=== PATIENT | male | born 1970 | race Caucasian/White ===

== ENCOUNTER 2022-11-03 11:07 | Emergency (ER) | payer BC ==
[~2022-11-03] VITALS: Ht 182 cm; Wt 90.0 kg
[2022-11-03 11:23] LABS: BASOPHILS % (AUTO) 0 % (0-10); EOSINOPHILS % (AUTO) 0 % (0-10); HEMATOCRIT 50 % (40-54); HEMOGLOBIN 17.7 g/dL (13.3-17.7); LYMPHOCYTES # (AUTO) 1.1 10^3/uL (1.0-4.0); LYMPHOCYTES % (AUTO) 21 % (12-44); MEAN CORPUSCULAR HEMOGLOBIN 33 pg (25-34); MEAN CORPUSCULAR HGB CONC 36 g/dL (32-36); MEAN CORPUSCULAR VOLUME 93 fL (80-99); MEAN PLATELET VOLUME 10.2 fL (9.0-12.2); MONOCYTES # (AUTO) 0.7 10^3/uL (0.0-1.0); MONOCYTES % (AUTO) 12 % (0-12); NEUTROPHILS # (AUTO) 3.6 10^3/uL (1.8-7.8); NEUTROPHILS % (AUTO) 66 % (42-75); PLATELET COUNT 186 10^3/uL (130-400); WHITE BLOOD COUNT 5.4 10^3/uL (4.3-11.0)
--- NOTE | 2022-11-03 11:29 | ED Cardiac General ---
History of Present Illness General Chief Complaint: Cardiac/General Problems Stated Complaint: TACHY | LOW BLOOD PRESSURE Nursing Triage Note: PT ARRIVED PER EMS, PT WAS AT [facility] IN [place], PT IS CURRENLY IN SVT. PT WAS GIVEN ADENSINE 6MG AND 12MG IV BY EMS W NO CHANGE IN RATE. PT HAS SL IN PLACE IN L AC #20 BY [facility]. PT IS ALERT AND ORIENTED. NO C/P OR DISTRESS. Source: patient, EMS Exam Limitations: no limitations History of Present Illness Date Seen by Provider: November 03, 2022 Time Seen by Provider: 11:10 Initial Comments 52-year-old male brought in from the [facility] clinic via ambulance from [place] presents for palpitations. He was found to be in SVT with rates in the 170s and reported systolic blood pressures in the 7080 range. He states he and his both felt unwell on Thursday and he did not really feel much better through the weekend. He does typically drink about 2 pots of coffee a day. No energy or workout supplements. He denies any chest pain or shortness of breath on arrival to states he feels off, slightly lightheaded and fatigued. EMS gave him 6 and 12 of adenosine in route without any change in his underlying rhythm. He did remain hypotensive, 80-90 systolic for EMS. On arrival he is alert and oriented. He states he had this happen once before about 2 years ago All other systems reviewed and negative except documented per HPI. Voice recognition software was used to help create this chart Allergies and Home Medications Allergies Coded Allergies: No Known Drug Allergies (Unverified , 11/03/22) Patient Home Medication List Home Medication List Reviewed: Yes Review of Systems Review of Systems Constitutional: see HPI Past Rqznbls-Vwkzfx-Vflvch Hx Patient Social History Tobacco Use?: Yes Use of E-Cig and/or Vaping dev: No Substance use?: No Alcohol Use?: No Physical Exam Vital Signs Vital Signs - First Documented 11/03/22 11/03/22 11:07 11:16 Temp 35.8 Pulse 178 Resp 18 B/P (MAP) 103/92 (96) Pulse Ox 100 O2 Delivery Room Air O2 Flow Rate 8.00 Capillary Refill : Less Than 3 Seconds Height, Weight, BMI Height: '" Weight: lbs. oz. kg; 27.00 BMI Method: General Appearance: No Apparent Distress, WD/WN HEENT: Normal ENT Inspection, Pharynx Normal Neck: Full Range of Motion, Normal Inspection, Non Tender, Supple Respiratory: Chest Non Tender, Lungs Clear, Normal Breath Sounds, No Accessory Muscle Use, No Respiratory Distress Cardiovascular: No Murmur, Normal Peripheral Pulses, Tachycardia Gastrointestinal: Normal Bowel Sounds, Non Tender, Soft Extremity: Normal Capillary Refill, Normal Inspection, Non Tender, No Calf Tenderness, No Pedal Edema Neurologic/Psychiatric: Alert, Oriented x3, No Motor/Sensory Deficits Skin: Normal Color, Warm/Dry Procedures/Interventions Additional Procedures: cardioversion/defib Progress Patient was sedated with 10 mg of etomidate. Synchronized cardioversion performed at 200 J. Successful cardioversion after single attempt. Patient tolerated well without complications. Progress/Results/Core Measures Results/Orders Lab Results Laboratory Tests Test 11/03/22 11:10 11/03/22 11:48 Range/Units White Blood Count 5.4 4.3-11.0 10^3/uL Red Blood Count 5.34 4.30-5.52 10^6/uL Hemoglobin 17.7 13.3-17.7 g/dL Hematocrit 50 40-54 % Mean Corpuscular Volume 93 80-99 fL Mean Corpuscular Hemoglobin 33 25-34 pg Mean Corpuscular Hemoglobin Concent 36 32-36 g/dL Red Cell Distribution Width 12.8 10.0-14.5 % Platelet Count 186 130-400 10^3/uL Mean Platelet Volume 10.2 9.0-12.2 fL Immature Granulocyte % (Auto) 0 % Neutrophils (%) (Auto) 66 42-75 % Lymphocytes (%) (Auto) 21 12-44 % Monocytes (%) (Auto) 12 0-12 % Eosinophils (%) (Auto) 0 0-10 % Basophils (%) (Auto) 0 0-10 % Neutrophils # (Auto) 3.6 1.8-7.8 10^3/uL Lymphocytes # (Auto) 1.1 1.0-4.0 10^3/uL Monocytes # (Auto) 0.7 0.0-1.0 10^3/uL Eosinophils # (Auto) 0.0 0.0-0.3 10^3/uL Basophils # (Auto) 0.0 0.0-0.1 10^3/uL Immature Granulocyte # (Auto) 0.0 0.0-0.1 10^3/uL Sodium Level 126 L 135-145 MMOL/L Potassium Level 4.6 3.6-5.0 MMOL/L Chloride Level 94 L 98-107 MMOL/L Carbon Dioxide Level 21 21-32 MMOL/L Anion Gap 11 5-14 MMOL/L Blood Urea Nitrogen 15 7-18 MG/DL Creatinine 1.18 0.60-1.30 MG/DL Estimat Glomerular Filtration Rate 73 BUN/Creatinine Ratio 13 Glucose Level 101 70-105 MG/DL Calcium Level 8.7 8.5-10.1 MG/DL Corrected Calcium 9.0 8.5-10.1 MG/DL Magnesium Level 2.0 1.6-2.4 MG/DL Total Bilirubin 0.5 0.1-1.0 MG/DL Aspartate Amino Transf (AST/SGOT) 21 5-34 U/L Alanine Aminotransferase (ALT/SGPT) 17 0-55 U/L Alkaline Phosphatase 47 40-136 U/L Troponin I 0.129 H <0.028 NG/ML Total Protein 6.8 6.4-8.2 GM/DL Albumin 3.6 3.2-4.5 GM/DL Group A Streptococcus Screen NEGATIVE NEGATIVE My Orders Orders - SHAWN MONTANA DO Ekg Tracing (11/03/22 11:12) Comprehensive Metabolic Panel (11/03/22 11:18) Magnesium (11/03/22 11:18) Troponin I Bond (11/03/22 11:18) Cbc With Automated Diff (11/03/22 11:18) Ekg Tracing (11/03/22 11:18) Ekg Tracing (11/03/22 11:18) Rapid Strep A Screen (11/03/22 11:46) Etomidate Injection (Amidate Injection) (11/03/22 12:00) Throat Culture Strep A Confirm (11/03/22 11:48) Medications Given in ED Current Medications Medications Dose Ordered Sig/French Route Start Time Stop Time Status Last Admin Dose Admin Etomidate 10 mg ONCE ONCE IV 11/03/22 12:00 11/03/22 12:01 DC 11/03/22 11:14 10 MG Vital Signs/I&O 11/03/22 11/03/22 11/03/22 11:07 11:16 11:30 Temp 35.8 Pulse 178 80 Resp 18 B/P (MAP) 103/92 (96) Pulse Ox 100 100 O2 Delivery Room Air OxyMask O2 Flow Rate 8.00 Blood Pressure Mean: 96 Comment Initial EKG at 1115: SVT at 170 bpm. Diffuse T wave inversions. No ST elevations. Normal intervals outside of TN interval. Normal axis. No STEMI. EKG : Comment Post cardioversion EKG at 1124: 83 bpm. Sinus rhythm. Normal intervals. Normal axis. No ST or T wave abnormalities. No ectopy. Critical Care Note Critical Care Total Time (minutes) 30 Departure Communication (Admissions) The patient initially was in SVT with rate [id number], hypotensive. He was quite dizzy. He was given etomidate for slight sedation and synchronized cardi oversion performed at 200 J with success after single cardioversion. Maintaining sinus rhythm after significant period of observation. Labs obtained to rule out electrolyte abnormalities. Sodium found to be 126. I then went into discussed this with him and his tells me that he has had issues with low sodium in the recent past, within the last year or so. They pull up labs on her phone and he had a 128 sodium in December of last year. He had a subsequent 131 and has not been rechecked since that time. With that I think this is likely chronic issue and does not require hospitalization at this time. Is unclear if hyponatremia had anything to do with his SVT episode but given that this is a chronic issue I doubt the significance. He has no real symptoms related to hyponatremia at this time. Have this rechecked in 48 hours with your primary care doctor and to seek further treatment recommendations regarding chronic hyponatremia. His troponin is slightly elevated. This is expected given his SVT that he likely had been in over the weekend continuously. This is likely from demand ischemia. He is completely asymptomatic at present feeling back to his normal state of health. He will be discharged home in stable condition with close follow-up. Impression Primary Impression: Supraventricular tachycardia Additional Impression: Chronic hyponatremia Disposition: 01 HOME, SELF-CARE Condition: Stable Departure-Patient Inst. Referrals: [facility] (PCP/Family) Primary Care Physician Patient Instructions: Supraventricular Tachycardia (SVT), Hyponatremia (DC) Add. Discharge Instructions: Increase your fluids at home, rest. Decrease your caffeine intake. Have your sodium rechecked in 48 hours. Return to the emergency department immediately for any chest pain shortness of breath or if your symptoms recur. All discharge instructions reviewed with patient and/or family. Voiced understanding. SHAWN MONTANA DO November 03, 2022 11:29
[2022-11-03 11:32] LABS: ALBUMIN 3.6 GM/DL (3.2-4.5)
[2022-11-03 11:33] LABS: POTASSIUM 4.6 MMOL/L (3.6-5.0)
[2022-11-03 11:34] LABS: CALCIUM 8.7 MG/DL (8.5-10.1)
[2022-11-03 11:35] LABS: TOTAL PROTEIN 6.8 GM/DL (6.4-8.2)
[2022-11-03 11:37] LABS: BILIRUBIN,TOTAL 0.5 MG/DL (0.1-1.0)
[2022-11-03 11:39] LABS: CREATININE SERUM 1.18 MG/DL (0.60-1.30)
[2022-11-03] MEDS ORDERED: ETOMIDATE IV SOLN 20 MG/10 ML VIAL IV ONE (12:00)
[2022-11-03 13:35] VITALS: BP 104/76
== END 2022-11-03 13:36 | disposition home or self-care (01) ==
LOC: ER 11:13
DX: I47.1 Supraventricular tachycardia (principal); E87.1 Hypo-osmolality and hyponatremia
CPT/HCPCS: 36415; 80053; 83735; 84484; 85025; 87430; 93005

== ENCOUNTER 2022-11-04 10:30 | Inpatient (IN) | payer BC ==
[~2022-11-04] VITALS: Ht 180 cm; Wt 88.0 kg
[2022-11-04] MEDS: ACETAMINOPHEN 500 MG TAB (TYLENOL) PO ONE ×2 (11:15→17:52)
[2022-11-04] MEDS: ENOXAPARIN 80 MG/0.8 ML (LOVENOX) SYR SC ONE ×2 (11:28→17:36)
[2022-11-04] MEDS: ADENOSINE 6 MG/2 ML (ADENOCARD) VIAL IV ONE ×2 (12:50→17:36)
[2022-11-04] MEDS: DIGOXIN 0.25 MG/ML (LANOXIN) 2 ML AMP IV ONE ×2 (12:52→17:37)
[2022-11-04] MEDS: fentaNYL INJ 100 MCG/2 ML AMP IVP ONE ×2 (12:58→17:37)
[2022-11-04] MEDS: ETOMIDATE IV SOLN 20 MG/10 ML VIAL IV ONE ×2 (12:59→17:36)
[2022-11-04] MEDS: AMIODARONE FOR BOLUS 150 MG in NS (IVPB) 100 ML IV ONE ×2 (13:08→17:36)
[2022-11-04] MEDS: NS IV 1000 ML 1,000 ML IV SCH ×4 (13:18→21:40)
[2022-11-04] MEDS: cefTRIAXone 1 GM/NS 50 ML IVPB IV SCH ×4 (13:18→17:34)
[2022-11-04] MEDS ORDERED: NS IV 1000 ML 1,000 ML ONE (13:52)
--- NOTE | 2022-11-04 15:29 | Diagnostic Imaging Report ---
EXAMINATION: Chest 1 view HISTORY: ACC, HR, FEVER COMPARISON: None available. FINDINGS: Heart size and pulmonary vasculature are normal. Mild perihilar and bibasilar interstitial opacities present. No pleural effusion or pneumothorax. The osseous structures are intact. IMPRESSION: 1. Perihilar and bibasilar interstitial opacities which can be seen with pulmonary edema, atelectasis, or pneumonia. Dictated by: Dictated on workstation # [id number]
[2022-11-04 15:54] LABS: URIC ACID 2.9 MG/DL (2.6-7.2)
[2022-11-04] MEDS ORDERED: fentaNYL INJ 100 MCG/2 ML AMP IV PRN (16:00)
[2022-11-04] MEDS ORDERED: EPINEPHrine 1 MG INJECTION 4 MG in NS (IVPB) 248 ML IV SCH (16:00)
[2022-11-04] MEDS ORDERED: ACETAMINOPHEN 500 MG TAB (TYLENOL) PO PRN (16:00)
[2022-11-04 16:01] LABS: BASOPHILS % (AUTO) 0 % (0-10); EOSINOPHILS % (AUTO) 0 % (0-10); HEMATOCRIT 49 % (40-54); HEMOGLOBIN 17.7 g/dL (13.3-17.7); LYMPHOCYTES # (AUTO) 0.6 10^3/uL (1.0-4.0); LYMPHOCYTES % (AUTO) 12 % (12-44); MEAN CORPUSCULAR HEMOGLOBIN 34 pg (25-34); MEAN CORPUSCULAR HGB CONC 37 g/dL (32-36); MEAN CORPUSCULAR VOLUME 92 fL (80-99); MEAN PLATELET VOLUME 10.9 fL (9.0-12.2); MONOCYTES # (AUTO) 0.3 10^3/uL (0.0-1.0); MONOCYTES % (AUTO) 6 % (0-12); NEUTROPHILS # (AUTO) 4.5 10^3/uL (1.8-7.8); NEUTROPHILS % (AUTO) 82 % (42-75); PLATELET COUNT 168 10^3/uL (130-400); WHITE BLOOD COUNT 5.5 10^3/uL (4.3-11.0)
[2022-11-04 16:02] LABS: ERYTHROCYTE SEDIMENTATION RATE 12 MM/HR (0-30)
[2022-11-04 16:25] LABS: ALBUMIN 3.6 GM/DL (3.2-4.5); BILIRUBIN,TOTAL 0.4 MG/DL (0.1-1.0); CALCIUM 8.6 MG/DL (8.5-10.1); CREATININE SERUM 0.94 MG/DL (0.60-1.30); FREE T4 (FREE THYROXINE) 0.9 NG/DL (0.70-1.48); MAGNESIUM 1.9 MG/DL (1.6-2.4); POTASSIUM 4.4 MMOL/L (3.6-5.0); TOTAL PROTEIN 6.7 GM/DL (6.4-8.2)
--- NOTE | 2022-11-04 16:43 | Consultation-Cardiology ---
HPI-Cardiology Cardiology Consultation Date of Consultation 11/04/22 Date of Admission Time Seen by Provider: 12:30 Indication: Atrial flutter HPI 52-year-old gentleman with vision in the emergency room, came in yesterday with tachycardia and hypotension, did not respond to adenosine, noted that he was cardioverted and discharged home. Return after starting to have palpitation a gain at around midnight, he was tachycardic, complaining of fatigue, loss of energy. He was noted to be in atrial flutter with rapid ventricular response. I gave him Cardizem drip, digoxin and then tried adenosine which showed underlying atrial flutter. Continues to be hypotensive I proceeded with DC synchronized cardioversion Home Medications & Allergies Allergies: Coded Allergies: No Known Drug Allergies (Unverified , 11/03/22) Home Medication List Reviewed: Yes DQC-[id number]-Puzfbm Hx Patient Social History Marital Status: Employed/Student: employed Past Medical History Discussed below Family Medical History Significant Family History: No Pertinent Family Hx Review of Systems-General Review of Systems Constitutional: no symptoms reported, see HPI, malaise, weakness EENTM: see HPI, no symptoms reported Respiratory: no symptoms reported, see HPI, dyspnea on exertion, short of breath Cardiovascular: see HPI, palpitations Gastrointestinal: no symptoms reported, see HPI Genitourinary: no symptoms reported, see HPI Musculoskeletal: no symptoms reported, see HPI Skin: no symptoms reported, see HPI Psychiatric/Neurological: No Symptoms Reported, See HPI Reviewed Test Results Reviewed Test Results Lab Laboratory Tests Test 11/04/22 10:52 11/04/22 13:50 11/04/22 15:25 Range/Units White Blood Count 5.5 4.3-11.0 10^3/uL Red Blood Count 5.29 4.30-5.52 10^6/uL Hemoglobin 17.7 13.3-17.7 g/dL Hematocrit 49 40-54 % Mean Corpuscular Volume 92 80-99 fL Mean Corpuscular Hemoglobin 34 25-34 pg Mean Corpuscular Hemoglobin Concent 37 H 32-36 g/dL Red Cell Distribution Width 12.8 10.0-14.5 % Platelet Count 168 130-400 10^3/uL Mean Platelet Volume 10.9 9.0-12.2 fL Immature Granulocyte % (Auto) 0 % Neutrophils (%) (Auto) 82 H 42-75 % Lymphocytes (%) (Auto) 12 12-44 % Monocytes (%) (Auto) 6 0-12 % Eosinophils (%) (Auto) 0 0-10 % Basophils (%) (Auto) 0 0-10 % Neutrophils # (Auto) 4.5 1.8-7.8 10^3/uL Lymphocytes # (Auto) 0.6 L 1.0-4.0 10^3/uL Monocytes # (Auto) 0.3 0.0-1.0 10^3/uL Eosinophils # (Auto) 0.0 0.0-0.3 10^3/uL Basophils # (Auto) 0.0 0.0-0.1 10^3/uL Immature Granulocyte # (Auto) 0.0 0.0-0.1 10^3/uL Erythrocyte Sedimentation Rate 12 0-30 MM/HR Sodium Level 126 L 129 L 135-145 MMOL/L Potassium Level 4.4 3.6-5.0 MMOL/L Chloride Level 96 L 98-107 MMOL/L Carbon Dioxide Level 20 L 21-32 MMOL/L Anion Gap 10 5-14 MMOL/L Blood Urea Nitrogen 10 7-18 MG/DL Creatinine 0.94 0.60-1.30 MG/DL Estimat Glomerular Filtration Rate 96 BUN/Creatinine Ratio 11 Glucose Level 107 H 70-105 MG/DL Calcium Level 8.6 8.5-10.1 MG/DL Corrected Calcium 8.9 8.5-10.1 MG/DL Magnesium Level 1.9 1.6-2.4 MG/DL Total Bilirubin 0.4 0.1-1.0 MG/DL Aspartate Amino Transf (AST/SGOT) 25 5-34 U/L Alanine Aminotransferase (ALT/SGPT) 20 0-55 U/L Alkaline Phosphatase 44 40-136 U/L Total Creatine Kinase 41 30-200 U/L Myoglobin 31.4 10.0-92.0 NG/ML Troponin I 0.121 H <0.028 NG/ML C-Reactive Protein High Sensitivity 8.70 H 0.00-0.50 MG/DL Total Protein 6.7 6.4-8.2 GM/DL Albumin 3.6 3.2-4.5 GM/DL Thyroid Stimulating Hormone (TSH) 1.51 1.16 0.35-4.94 UIU/ML Free Thyroxine 0.90 0.70-1.48 NG/DL Uric Acid 2.9 2.6-7.2 MG/DL Physical Exam Physical Exam Vital Signs Capillary Refill : Height, Weight, BMI Height: '" Weight: lbs. oz. kg; 27.00 BMI Method: General Appearance: No Apparent Distress, WD/WN Eyes: Bilateral Eye Normal Inspection, Bilateral Eye PERRL, Bilateral Eye EOMI HEENT: PERRL/EOMI, TMs Normal, Normal ENT Inspection, Pharynx Normal, Moist Mucous Membranes Neck: Full Range of Motion, Normal Inspection, Non Tender, Supple, Carotid Bruit Respiratory: Chest Non Tender, Normal Breath Sounds, No Accessory Muscle Use, No Respiratory Distress Cardiovascular: No Edema, No Gallop, No JVD, No Murmur, Normal Peripheral Pulses Gastrointestinal: Normal Bowel Sounds, No Organomegaly, No Pulsatile Mass, Non Tender, Soft Back: Normal Inspection, No CVA Tenderness, No Vertebral Tenderness Extremity: Normal Capillary Refill, Normal Inspection, Normal Range of Motion, Non Tender, No Calf Tenderness, No Pedal Edema Neurologic/Psychiatric: Alert, Oriented x3, No Motor/Sensory Deficits, Normal Mood/Affect Skin: Normal Color, Warm/Dry Lymphatic: No Adenopathy A/P-Cardiology Admission Diagnosis Atrial flutter Tachycardia Hypotension Fever Assessment/Plan Atrial flutter with rapid ventricular response Resistant to treatment with Cardizem or digoxin, continue to be hypotensive I used adenosine to evaluate the underlying rhythm which showed atrial flutter Given amiodarone bolus and electrical cardioversion was done Patient was initiated on Lovenox. Tolerating it well. CHADVASC score 1, for now he will require oral anticoagulation Palpitation, secondary to atrial flutter. Fever, leukocytosis, started on antibiotic Septic work-up initiated I will evaluate 2D echo Hypotension, probably secondary to tachycardia. Underlying sepsis cannot be excluded. ALTAGRACIA LOZANO MD November 04, 2022 16:43
--- NOTE | 2022-11-04 16:44 | Cardioversion ---
Cardioversion PROCEDURE PHYSICIAN: Altagracia Rae DATE OF PROCEDURE: 11/04/22 DIRECT EXTERNAL ELECTRICAL CARDIOVERSION: Indications: Atrial flutter with rapid ventricular rate Preoperative diagnoses: Atrial flutter with rapid ventricular rate Postoperative diagnosis: Sinus rhythm, Successful Electrical Cardioversion History: 52-year-old gentleman admitted with atrial flutter, tachycardia and hypotension was noted Maintained on Cardizem drip and digoxin without response Started on amiodarone bolus, I will start a drip I will evaluate 2D echo Cardioversion advised Anesthesia: By Anesthesia services Complications: None Specimen: None Contrast: 0 Flouroscopy: none Procedure Details: The patient was brought the laborer/grade check after informed consent was taken, all the risks and complications were explained including the risk of stroke. Electrical cardioversion was carried out with anesthesia support with propofol. 120 joules of synchronized shock was delivered through external patches which promptly restored sinus rhythm. The patient tolerated the procedure well. Conclusions: Successful electrical cardioversion terminating atrial flutter ALTAGRACIA RAE MD November 04, 2022 16:44
[2022-11-04 17:05] LABS: BILIRUBIN,URINE NEGATIVE (NEGATIVE); CLARITY,URINE CLEAR; COLOR,URINE YELLOW; GLUCOSE, URINE (UA) NEGATIVE (NEGATIVE); KETONES,URINE NEGATIVE (NEGATIVE); LEUKOCYTE ESTERASE ,URINE NEGATIVE (NEGATIVE); NITRITE,URINE NEGATIVE (NEGATIVE); PROTEIN,URINE NEGATIVE (NEGATIVE)
[2022-11-04 17:06] LABS: BACTERIA,URINE NEGATIVE /HPF
[2022-11-04] MEDS ORDERED: LACTATED RINGERS 1,000 ML IV SCH ×2 (17:15)
[2022-11-04] MEDS ORDERED: cefTRIAXone IV/IM 1,000 MG in NS (IVPB) 50 ML IV SCH (17:15)
[2022-11-04] MEDS ORDERED: dilTIAZem DRIP PRE-MIX 125 ML IV SCH (17:15)
[2022-11-04] MEDS: ETOMIDATE IV SOLN 20 MG/10 ML VIAL ONE ×2 (17:31→19:44)
[2022-11-04] MEDS: NS IV 1000 ML 1,000 ML ONE ×2 (17:31→19:50)
[2022-11-04] MEDS: AMIODARONE 150 MG/3 ML (CORDARONE) VIAL IV ONE ×2 (17:32→19:49)
[2022-11-04] MEDS: D5W 100 ML IVPB 100 ML IV ONE ×2 (17:32→19:45)
[2022-11-04] MEDS: fentaNYL INJ 100 MCG/2 ML AMP ONE ×2 (17:32→19:45)
[2022-11-04] MEDS: VASOPRESSIN INJECTION 20 UNIT in NS (IVPB) 100 ML IV SCH (17:33)
[2022-11-04] MEDS: NOREPINEPHRINE 8 MG/250 ML 250 ML IV SCH (17:33)
[2022-11-04] MEDS: dilTIAZem DRIP 125 MG/125 ML DRIP IV SCH (17:50)
[2022-11-04] MEDS: AZITHROMYCIN 500 MG/NS 250 ML IVPB IV SCH ×2 (17:51)
[2022-11-04] MEDS: PANTOPRAZOLE 40 MG (PROTONIX) TAB PO SCH (17:51)
[2022-11-04] MEDS: AMIODARONE INJECTION 450 MG in NORMAL SALINE 250 ML IV SCH (17:52)
--- NOTE | 2022-11-04 18:04 | Tele-ICU Progress Note ---
Subjective Date Seen by a Provider: November 04, 2022 Time Seen by a Provider: 18:04 Subjective/Events-last exam (Tele-ICU Physician , Progress Note ) Service provided via interactive audio and video telecommunications [facility] s jurgen to a patient admitted to ICU bed in [facility]. Patient is seen today due to persistent need of ICU care Available chart/ vitals / labs / Images reviewed Video assessment done using teleICU camera, rest of exam as per RN This gentleman apparently came to the emergency room yesterday with a tachycardia with hypotension requiring cardioversion and potently he felt better and heart rate controlled subsequently he was discharged home. Today he came to the emergency room with a complaint of palpitation and some shortness of breath. In the emergency room he is found to have a heart rate in the range of 140- 160/min. He was tried on Cardizem and digoxin which did not help him adenosine was injected which revealed underlying rhythm was atrial flutter. After an amiodarone bolus she was cardioverted and converted to sinus rhythm. Subsequently he is admitted to the intensive care unit and started on Lovenox. Meanwhile he had a recurrence of atrial flutter with rapid ventricular rate. He is being managed by cardiology service. There is no telemetry ICU consultation however seeing the patient via telemetry per protocol. He is currently resting comfortably. Impression 1. Atrial flutter with rapid ventricular rate. 2. Questionable fever and sepsis Recommendations 1. Diltiazem and amiodarone drip per cardiology 2. Lovenox for stroke prophylaxis per cardiology 3. IV antibiotics for possible sepsis per primary care. We will follow the patient on a as needed basis if needed. I am remotely monitoring this patient from Tele icu station in [place]. I am unable to do the bedside exam, and history/physical and pertinent information is taken from other notes in the computer and bedside staff. Certain portions of this document may have been dictated utilizing voice recognition technology such as [employer]. Inherent to this technology, typogra phical and grammatical errors may exist. As much as I am diligent to identify and correct to these mistakes, some errors may remain in the document. Critical care time devoted to this patient today is approximately is--20 minutes Sepsis Event Evaluation Height, Weight, BMI Height: '" Weight: lbs. oz. kg; 27.77 BMI Method: Exam Exam Patient acknowledged, consented, and participated in this virtual visit which was conducted using real time audio/video Vital Signs Date Time Temp Pulse Resp B/P (MAP) Pulse Ox O2 Delivery O2 Flow Rate FiO2 11/04/22 17:50 115 119/76 11/04/22 17:30 115 21 119/76 (90) 99 Nasal Cannula 2.00 11/04/22 17:15 124 19 118/76 (90) 96 Nasal Cannula 2.00 11/04/22 17:00 115 12 115/72 (86) 99 Nasal Cannula 2.00 11/04/22 16:00 Nasal Cannula 2.00 11/04/22 13:30 Nasal Cannula 2.00 Height & Weight Height: '" Weight: lbs. oz. kg; 27.77 BMI Method: General Appearance: No Apparent Distress, WD/WN HEENT: PERRL/EOMI, TMs Normal, Normal ENT Inspection, Pharynx Normal, Moist Muc ous Membranes Neck: Full Range of Motion, Normal Inspection, Non Tender, Supple, Carotid Bruit Respiratory: Chest Non Tender, Normal Breath Sounds, No Accessory Muscle Use, No Respiratory Distress Cardiovascular: No Edema, No Gallop, No JVD, No Murmur, Normal Peripheral Pulses Extremity: Normal Capillary Refill, Normal Inspection, Normal Range of Motion, Non Tender, No Calf Tenderness, No Pedal Edema Neurologic/Psychiatric: Alert, Oriented x3, No Motor/Sensory Deficits, Normal Mood/Affect Skin: Normal Color, Warm/Dry Lymphatic: No Adenopathy Results Lab Laboratory Tests 11/04/22 10:52 11/04/22 15:25 Assessment/Plan Assessment/Plan as above Critical Care: Critically Ill Patient Time spent with patient (mins): 20 JIHAN LAW MD November 04, 2022 18:04
--- NOTE | 2022-11-04 18:28 | History & Physical ---
HPI History of Present Illness: This is a 52 yo male who had onset of febrile illness over the weekend. He and his had returned from a cruise to the [facility] about 1 week prior to onset of illness. His developed similar symptoms over the weekend including fever, body aches, fatigue and cough. Denies n/v or diarrhea. Over the weekend patient developed near syncope and had to lower himself to the floor while almost passing out. He was seen by his PCP, Dr. Ram at [facility] in [place] on Thursday and found to be in SVT. He was sent to [facility] and received 2 dose of adenosine by EMS. Eventually he required cardioversion and converted to NSR and was discharged to home. Overnight he spiked a fever to 103 and re-developed an arrhythmia and subsequently returned to the ED and found to be in a-flutter with RVR. He reports significant coughing overnight. Patient has a history of 1 prior episode of SVT several years ago. Patient has a history of chronic hyponatremia, etiology has not been determined. Typically Na runs approx 130. Noted to be 126 in ED a previous visit. Not on thiazide diuretic, does not excessive consume alcohol. No hx of CHF or cirrhosis. Patient has hx of RA for which he has been well maintained on methotrexate. Source: patient, family Exam Limitations: no limitations Date seen by provider: November 04, 2022 Time Seen by Provider: 11:45 Attending Physician [facility] PCP Admitting Physician: Nemesio Artis DO Attending Physician: Nemesio Artis DO Consult Dr. 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 Patients Allergies have been reviewed. Allergies Coded Allergies: No Known Drug Allergies (Unverified , 11/03/22) [id number] Hx Patient Social History Marrital Status: Employed/Student: employed Smoking Status: Current Everyday Smoker Alcohol Use?: Yes Tobacco type used: Cigarettes Have you traveled recently?: Yes Immunizations Up To Date Influenza Vaccine Up-to-Date: Yes; Up-to-Date First/Initial COVID19 Vaccinat: YES Second COVID19 Vaccination Carlo: YES Third COVID19 Vaccination Date: YES Past Medical History Rheumatoid Arthritis chronic hyponatremia tobaccoism Family Medical History Significant Family History: No Pertinent Family Hx Review of Systems (CHC) Constitutional: see HPI, dizziness, fever, weakness EENTM: no symptoms reported Respiratory: cough, short of breath Cardiovascular: No edema; palpitations, syncope Gastrointestinal: no symptoms reported Genitourinary: no symptoms reported Musculoskeletal: back pain, joint pain Skin: no symptoms reported Psychiatric/Neurological: No Symptoms Reported Reviewed Test Results Reviewed Test Results Lab Laboratory Tests 11/04/22 10:52: White Blood Count 5.5, Red Blood Count 5.29, Hemoglobin 17.7, Hematocrit 49, Mean Corpuscular Volume 92, Mean Corpuscular Hemoglobin 34, Mean Corpuscular Hemoglobin Concent 37H, Red Cell Distribution Width 12.8, Platelet Count 168, Mean Platelet Volume 10.9, Immature Granulocyte % (Auto) 0, Neutrophils (%) (Auto) 82H, Lymphocytes (%) (Auto) 12, Monocytes (%) (Auto) 6, Eosinophils (%) (Auto) 0, Basophils (%) (Auto) 0, Neutrophils # (Auto) 4.5, Lymphocytes # (Auto) 0.6L, Monocytes # (Auto) 0.3, Eosinophils # (Auto) 0.0, Basophils # (Auto) 0.0, Immature Granulocyte # (Auto) 0.0, Erythrocyte Sedimentation Rate 12, Sodium Level 126L, Potassium Level 4.4, Chloride Level 96L, Carbon Dioxide Level 20L, Anion Gap 10, Blood Urea Nitrogen 10, Creatinine 0.94, Estimat Glomerular Fi ltration Rate 96, BUN/Creatinine Ratio 11, Glucose Level 107H, Calcium Level 8.6, Corrected Calcium 8.9, Magnesium Level 1.9, Total Bilirubin 0.4, Aspartate Amino Transf (AST/SGOT) 25, Alanine Aminotransferase (ALT/SGPT) 20, Alkaline Phosphatase 44, Total Creatine Kinase 41, Myoglobin 31.4, Troponin I 0.121H, C- Reactive Protein High Sensitivity 8.70H, Total Protein 6.7, Albumin 3.6, Thyroid Stimulating Hormone (TSH) 1.51, Free Thyroxine 0.90, Influenza Type A (RT-PCR) Not Detected, Influenza Type B (RT-PCR) Not Detected, SARS-CoV-2 RNA (RT-PCR) Not Detected 11/04/22 13:50: Urine Color YELLOW, Urine Clarity CLEAR, Urine pH 7.0, Urine Specific [place] 1.010L, Urine Protein NEGATIVE, Urine Glucose (UA) NEGATIVE, Urine Ketones NEGATIVE, Urine Nitrite NEGATIVE, Urine Bilirubin NEGATIVE, Urine Urobilinogen 0.2, Urine Leukocyte Esterase NEGATIVE, Urine RBC (Auto) NEGATIVE, Urine RBC NONE, Urine WBC NONE, Urine Squamous Epithelial Cells NONE, Urine Crystals NONE, Urine Bacteria NEGATIVE, Urine Casts NONE, Urine Mucus NEGATIVE, Urine Culture Indicated NO, Urine Osmolality 373, Urine Random Sodium 64 11/04/22 15:25: Sodium Level 129L, Thyroid Stimulating Hormone (TSH) 1.16, Uric Acid 2.9 Radiology Date of Exam:11/04/22 CHEST 1 VIEW, AP/PA ONLY EXAMINATION: Chest 1 view HISTORY: ACC, HR, FEVER COMPARISON: None available. FINDINGS: Heart size and pulmonary vasculature are normal. Mild perihilar and bibasilar interstitial opacities present. No pleural effusion or pneumothorax. The osseous structures are intact. IMPRESSION: 1. Perihilar and bibasilar interstitial opacities which can be seen with pulmonary edema, atelectasis, or pneumonia. Physical Exam-(CHC) Physical Exam Vital Signs VS - Last 72 Hours, by Label 11/04/22 11/04/22 11/04/22 11/04/22 10:35 10:49 10:56 13:00 Temp 39.1 Pulse 172 172 172 Resp 22 B/P (MAP) 94/70 (78) 116/80 92/77 Pulse Ox 95 O2 Delivery OxyMask O2 Flow Rate 2.00 11/04/22 11/04/22 11/04/22 11/04/22 13:08 13:18 13:30 13:30 Temp 38.0 Pulse 172 161 156 Resp 26 B/P (MAP) 122/72 108/60 112/71 Pulse Ox 95 O2 Delivery Nasal Cannula Nasal Cannula O2 Flow Rate 2.00 2.00 11/04/22 11/04/22 11/04/22 11/04/22 16:00 17:00 17:15 17:30 Pulse 115 124 115 Resp 12 19 21 B/P (MAP) 115/72 (86) 118/76 (90) 119/76 (90) Pulse Ox 99 96 99 O2 Delivery Nasal Cannula Nasal Cannula Nasal Cannula Nasal Cannula O2 Flow Rate 2.00 2.00 2.00 2.00 511/04/22 11/04/22 11/04/22 17:50 18:00 18:22 19:00 Pulse 115 124 84 93 Resp 11 16 B/P (MAP) 119/76 114/85 (95) 89/59 (69) Pulse Ox 100 99 O2 Delivery Nasal Cannula O2 Flow Rate 2.00 11/04/22 11/04/22 11/04/22 11/04/22 19:00 19:15 19:15 19:15 Temp 37.2 Pulse 93 80 B/P (MAP) 93/59 (70) Pulse Ox 99 O2 Delivery Nasal Cannula Nasal Cannula O2 Flow Rate 2.00 2.00 11/04/22 11/04/22 11/04/22 11/04/22 19:30 19:45 19:55 20:00 Pulse 80 80 94 94 Resp 16 B/P (MAP) 95/61 (72) 98/65 (76) 98/56 (70) Pulse Ox 100 99 98 11/04/22 11/04/22 11/04/22 11/04/22 20:15 20:30 20:45 20:45 Pulse 90 90 130 93 Resp 17 16 16 B/P (MAP) 109/52 (71) 98/66 (77) 97/63 (74) Pulse Ox 98 90 93 11/04/22 11/04/22 11/04/22 11/04/22 20:50 21:00 21:15 21:30 Pulse 81 85 89 86 Resp 14 B/P (MAP) 118/52 (74) 100/69 (79) 111/65 (80) Pulse Ox 92 90 90 O2 Delivery Nasal Cannula O2 Flow Rate 4.00 11/04/22 11/04/22 11/04/22 11/04/22 21:42 21:55 22:00 22:30 Temp 39.0 39.0 Pulse 96 89 Resp 12 16 B/P (MAP) 99/67 (78) 108/49 (68) Pulse Ox 93 97 11/04/22 11/04/22 11/04/22 11/04/22 23:00 23:00 23:10 23:30 Temp 37.1 37.1 Pulse 78 90 Resp 18 20 B/P (MAP) 90/58 (69) 89/62 (71) Pulse Ox 95 96 O2 Delivery Nasal Cannula Nasal Cannula O2 Flow Rate 4.00 3.00 11/05/22 11/05/22 11/05/22 11/05/22 00:00 01:00 01:00 02:00 Pulse 82 94 75 91 Resp 16 20 20 B/P (MAP) 101/61 (74) 105/61 (76) 107/90 (96) Pulse Ox 97 97 95 O2 Delivery Nasal Cannula O2 Flow Rate 3.00 11/05/22 11/05/22 11/05/22 11/05/22 02:32 03:00 04:00 04:15 Pulse 109 97 105 Resp 20 18 B/P (MAP) 112/72 (85) 122/85 (97) Pulse Ox 95 95 O2 Delivery Nasal Cannula Nasal Cannula Nasal Cannula O2 Flow Rate 2.00 2.00 2.00 11/05/22 11/05/22 11/05/22 11/05/22 04:15 04:19 04:53 05:00 Temp 39.2 39.2 39.2 39.2 Pulse 131 Resp 22 B/P (MAP) 106/74 (85) Pulse Ox 93 11/05/22 11/05/22 11/05/22 11/05/22 05:00 05:32 05:34 06:00 Temp 39.2 38.1 Pulse 110 168 Resp 22 B/P (MAP) 117/76 (90) Pulse Ox 100 11/05/22 06:30 Pulse 105 Capillary Refill : General Appearance: WD/WN HEENT: PERRL/EOMI Respiratory: no respiratory distress, no accessory muscle use Cardiovascular: tachycardia, irregularly irregular Gastrointestinal: non tender, soft Extremities: no pedal edema Neurologic/Psychiatric: alert, normal mood/affect, oriented x 3 Skin: normal color, warm/dry; No jaundice Lymphatic: no adenopathy Assessment/Plan Assessment/Plan Admission Status: Inpatient Order (span 2 midnights) Reason for Inpatient Admission: requires IV drip to treat arrhymia requiring ICU monitoring (1) Atrial flutter with rapid ventricular response Status: Acute Assessment & Plan: Admitted to ICU, Dr. Rae consulted for cardiology management. Treated w/ Cardizem drip and digoxin - resistant. Amiodarone bolus given. On Lovenox for clot prevention; will need po anticoagulation. 2D Echo ordered (2) Pneumonia Status: Acute Assessment & Plan: Fever and possible infiltrate on CXR. WBC normal; however patient is immunosuppressed due to RA treatment On Rocephin and zithromax Blood cultures pending. Qualifiers: Qualified Codes: J18.9 - Pneumonia, unspecified organism (3) Chronic hyponatremia Status: Acute Assessment & Plan: - suspect SIADH - urine Na and osmolality ordered - given IVF in ED due to apparent hypovolemia and hypotension (from arrhythmia) - Na increased to 129 from 126; goal increase is 4-6 in 24h - may need fluid restriction if Na decreases or fails to correct. NEMESIO ARTIS DO November 04, 2022 18:28
--- NOTE | 2022-11-04 18:46 | ED General ---
General Chief Complaint: Cardiac/General Problems Stated Complaint: A-FLUTTER|SEVERE SEPSIS|RVR Nursing Triage Note: PT ARRIVED PER EMS, PT WAS AT [facility] IN [place], PT IS [facility] PT WAS GIVEN ADENSINE 6MG AND 12MG IV BY EMS W NO CHANGE IN RATE. PT HAS SL IN PLACE IN L AC #20 BY [facility]. PT IS ALERT AND ORIENTED. NO C/P OR DISTRESS. PT HAS BEEN FEELING SICK SINCE THURSDAY TESTED NEG FOR COVID ON THURSDAY, THURSDAY HAVING FLU TYPE SX. PT HAS BEEN ON CRUISE RECENTLY. Nursing Sepsis Screen: Sepsis Risk Source of Information: Patient, Old Records, Other (Dr. Estela Ram) Exam Limitations: No Limitations History of Present Illness Date Seen by Provider: November 04, 2022 Time Seen by Provider: 10:35 Allergies and Home Medications Allergies Coded Allergies: No Known Drug Allergies (Unverified , 11/03/22) Patient Home Medication List Folic Acid (Folic Acid) 1 Mg Tablet, 1 MG PO DAILY, (Reported) Entered as Reported by: CLARENCE DIAS on 11/05/22 114 Last Action: Reviewed Meloxicam (Meloxicam) 15 Mg Tablet, 15 MG PO DAILY, (Reported) Entered as Reported by: CLARENCE DIAS on 11/05/22 114 Last Action: Reviewed Methotrexate Sodium (Methotrexate) 2.5 Mg Tablet, 12.5 MG PO BID ON , (Reported) Entered as Reported by: CLARENCE DIAS on 11/05/221141 Last Action: Reviewed Multivit-Min/Folic/Vit K/Lycop (Men's 50 Plus Multivitamin Tab) 400 Mcg-20 Mcg- 370 Mcg Tablet, 1 EACH PO DAILY, (Reported) Entered as Reported by: CLARENCE DIAS on 11/05/221141 Last Action: Reviewed Past Dsrgvhl-Uzliru-Qegkvp Hx Patient Social History Tobacco Use?: Yes Tobacco type used: Cigarettes Smoking Status: Current Everyday Smoker Smokeless Tobacco Frequency: Never a User Use of E-Cig and/or Vaping dev: No Substance use?: No Alcohol Use?: Yes Alcohol type: Beer Alcohol Frequency: Once in a while Pt feels they are or have been: No Immunizations Up To Date Influenza Vaccine Up-to-Date: Yes; Up-to-Date First/Initial COVID19 Vaccinat: YES Second COVID19 Vaccination Carlo: YES Third COVID19 Vaccination Date: YES Family Medical History No Pertinent Family Hx Physical Exam-Suspected Sepsis Physical Exam Vital Signs Vital Signs - First Documented 11/04/22 11/04/22 10:35 13:00 Temp 39.1 Pulse 172 Resp 22 B/P (MAP) 94/70 (78) Pulse Ox 95 O2 Delivery OxyMask O2 Flow Rate 2.00 Capillary Refill : Less Than 3 Seconds Blood Pressure Mean: 95 Height, Weight, BMI Height: '" Weight: lbs. oz. kg; 27.77 BMI Method: Progress/Results/Core Measures Suspected Sepsis Infection Criteria Present: Suspected New Infection Sepsis Screen: Sepsis Risk SIRS Temperature: Pulse: 84 Respiratory Rate: 18 Laboratory Tests 11/07/22 04:22: White Blood Count 8.9 11/08/22 04:04: White Blood Count 7.7 11/09/22 05:28: White Blood Count 6.5 Blood Pressure 119 /76 Mean: 95 Laboratory Tests 11/07/22 04:22: Creatinine 1.06, Platelet Count 164, Total Bilirubin 0.4 11/08/22 04:04: Creatinine 0.96, Platelet Count 221, Total Bilirubin 0.4 11/09/22 05:28: Creatinine 0.80, Platelet Count 255, Total Bilirubin 0.4 Results/Orders Lab Results Laboratory Tests Test 11/08/22 04:04 11/09/22 05:28 Range/Units White Blood Count 7.7 6.5 4.3-11.0 10^3/uL Red Blood Count 4.29 L 4.16 L 4.30-5.52 10^6/uL Hemoglobin 14.1 13.6 13.3-17.7 g/dL Hematocrit 40 39 L 40-54 % Mean Corpuscular Volume 93 93 80-99 fL Mean Corpuscular Hemoglobin 33 33 25-34 pg Mean Corpuscular Hemoglobin Concent 35 35 32-36 g/dL Red Cell Distribution Width 13.4 13.2 10.0-14.5 % Platelet Count 221 255 130-400 10^3/uL Mean Platelet Volume 10.3 9.8 9.0-12.2 fL Immature Granulocyte % (Auto) 1 1 % Neutrophils (%) (Auto) 67 60 42-75 % Lymphocytes (%) (Auto) 24 28 12-44 % Monocytes (%) (Auto) 5 5 0-12 % Eosinophils (%) (Auto) 3 5 0-10 % Basophils (%) (Auto) 0 1 0-10 % Neutrophils # (Auto) 5.2 3.9 1.8-7.8 10^3/uL Lymphocytes # (Auto) 1.9 1.8 1.0-4.0 10^3/uL Monocytes # (Auto) 0.4 0.4 0.0-1.0 10^3/uL Eosinophils # (Auto) 0.2 0.3 0.0-0.3 10^3/uL Basophils # (Auto) 0.0 0.1 0.0-0.1 10^3/uL Immature Granulocyte # (Auto) 0.1 0.1 0.0-0.1 10^3/uL Sodium Level 134 L 136 135-145 MMOL/L Potassium Level 3.8 3.6 3.6-5.0 MMOL/L Chloride Level 98 102 98-107 MMOL/L Carbon Dioxide Level 23 25 21-32 MMOL/L Anion Gap 13 9 5-14 MMOL/L Blood Urea Nitrogen 14 11 7-18 MG/DL Creatinine 0.96 0.80 0.60-1.30 MG/DL Estimat Glomerular Filtration Rate 94 105 BUN/Creatinine Ratio 15 14 Glucose Level 95 96 70-105 MG/DL Calcium Level 8.3 L 8.0 L 8.5-10.1 MG/DL Corrected Calcium 9.5 9.2 8.5-10.1 MG/DL Total Bilirubin 0.4 0.4 0.1-1.0 MG/DL Aspartate Amino Transf (AST/SGOT) 86 H 78 H 5-34 U/L Alanine Aminotransferase (ALT/SGPT) 63 H 70 H 0-55 U/L Alkaline Phosphatase 48 45 40-136 U/L Total Protein 5.4 L 5.9 L 6.4-8.2 GM/DL Albumin 2.5 L 2.5 L 3.2-4.5 GM/DL My Orders Vital Signs/I&O 11/09/22 11/09/22 11/09/22 11/09/22 12:18 14:00 15:03 16:10 Temp 37.0 36.8 Pulse 74 71 83 Resp 18 18 B/P (MAP) 116/73 (87) 122/77 (92) Pulse Ox 95 91 97 O2 Delivery High Flow N/C Nasal Cannula Nasal Cannula O2 Flow Rate 3.00 3.00 3.00 11/09/22 11/09/22 11/09/22 20:00 20:29 21:33 Temp 36.6 Pulse 66 Resp 18 B/P (MAP) 131/83 (99) Pulse Ox 96 93 O2 Delivery Nasal Cannula Nasal Cannula Nasal Cannula O2 Flow Rate 2.00 2.00 3.00 Capillary Refill : Less Than 3 Seconds Blood Pressure Mean: 95 Departure Communication (Admissions) Time/Spoke to Admitting Phy: 12:25 Berrios Time/Spoke to Consulting Phy: 12:25 Kyra Impression Primary Impression: Atrial flutter with rapid ventricular response Additional Impressions: Sepsis Qualified Codes: A41.9 - Sepsis, unspecified organism Pneumonia Qualified Codes: J18.9 - Pneumonia, unspecified organism Disposition: ADMITTED INPATIENT Condition: Improved Admissions Decision to Admit Reason: Admit from ER (Trauma) Departure-Patient Inst. Referrals: [facility] (PCP/Family) Primary Care Physician RACHEAL GÓMEZ MD November 04, 2022 18:46
[2022-11-04] MEDS: ENOXAPARIN 100 MG/1 ML (LOVENOX) SYR SC SCH (20:19)
[2022-11-04] MEDS: ACETAMINOPHEN 500 MG TAB (TYLENOL) PO PRN (21:55)
[2022-11-05] MEDS: VASOPRESSIN INJECTION 20 UNIT in NS (IVPB) 100 ML IV SCH ×2 (02:59→14:15)
[2022-11-05] MEDS: AMIODARONE INJECTION 450 MG in NORMAL SALINE 250 ML IV SCH (03:05)
[2022-11-05] MEDS: NS IV 1000 ML 1,000 ML IV SCH (04:16)
[2022-11-05] MEDS: ACETAMINOPHEN 500 MG TAB (TYLENOL) PO PRN ×3 (04:19→16:15)
[2022-11-05 05:17] LABS: BASOPHILS % (AUTO) 0 % (0-10); EOSINOPHILS % (AUTO) 0 % (0-10); HEMATOCRIT 44 % (40-54); HEMOGLOBIN 15.9 g/dL (13.3-17.7); LYMPHOCYTES # (AUTO) 0.7 10^3/uL (1.0-4.0); LYMPHOCYTES % (AUTO) 10 % (12-44); MEAN CORPUSCULAR HEMOGLOBIN 33 pg (25-34); MEAN CORPUSCULAR HGB CONC 36 g/dL (32-36); MEAN CORPUSCULAR VOLUME 92 fL (80-99); MEAN PLATELET VOLUME 10.3 fL (9.0-12.2); MONOCYTES # (AUTO) 0.1 10^3/uL (0.0-1.0); MONOCYTES % (AUTO) 2 % (0-12); NEUTROPHILS # (AUTO) 5.5 10^3/uL (1.8-7.8); NEUTROPHILS % (AUTO) 87 % (42-75); PLATELET COUNT 144 10^3/uL (130-400); WHITE BLOOD COUNT 6.3 10^3/uL (4.3-11.0)
[2022-11-05 05:23] LABS: POTASSIUM 3.9 MMOL/L (3.6-5.0)
[2022-11-05 05:24] LABS: CALCIUM 7.5 MG/DL (8.5-10.1)
[2022-11-05 05:29] LABS: CREATININE SERUM 0.78 MG/DL (0.60-1.30)
[2022-11-05] MEDS: dilTIAZem DRIP 125 MG/125 ML DRIP IV SCH ×2 (05:34→15:10)
[2022-11-05 06:17] LABS: BAND NEUTROPHILS 6 %; LYMPHOCYTES % (MANUAL) 10 %; MONOCYTES % (MANUAL) 1 %; NEUTROPHILS % (MANUAL) 83 %; RBC MORPH NORMAL
[2022-11-05] MEDS: NOREPINEPHRINE 8 MG/250 ML 250 ML IV SCH ×2 (06:29→20:49)
[2022-11-05 06:44] LABS: ALBUMIN 2.7 GM/DL (3.2-4.5)
[2022-11-05 06:47] LABS: TOTAL PROTEIN 5.2 GM/DL (6.4-8.2)
[2022-11-05 06:48] LABS: BILIRUBIN,TOTAL 0.4 MG/DL (0.1-1.0)
[2022-11-05 06:50] LABS: PHOSPHORUS 2.3 MG/DL (2.3-4.7)
[2022-11-05 06:52] LABS: MAGNESIUM 1.5 MG/DL (1.6-2.4)
[2022-11-05] MEDS ORDERED: AMIODARONE 200 MG (CORDARONE) TAB ONE (08:19)
[2022-11-05] MEDS: PANTOPRAZOLE 40 MG (PROTONIX) TAB PO SCH (08:27)
[2022-11-05] MEDS: ASPIRIN E.C. 81 MG (ECOTRIN) TAB PO SCH (08:27)
[2022-11-05] MEDS: AMIODARONE 200 MG (CORDARONE) TAB PO SCH ×2 (08:27→20:53)
[2022-11-05] MEDS ORDERED: IBUPROFEN 600 MG (MOTRIN) TAB PO ONE (10:28)
[2022-11-05] MEDS ORDERED: FUROSEMIDE 20 MG (LASIX) TAB ONE (10:28)
[2022-11-05] MEDS: ENOXAPARIN 100 MG/1 ML (LOVENOX) SYR SC SCH ×2 (10:30→21:01)
--- NOTE | 2022-11-05 11:30 | Cardiology Progress Note ---
Subjective Date Seen by Provider: November 05, 2022 Time Seen by Provider: 11:25 Subjective/Events-last exam Patient was seen at bedside, complaining of fatigue and lethargy. No chest pain. Has been in and out of atrial flutter at night. Review of Systems General: Chills, Night Sweats, Fatigue; No Malaise, No Appetite, No Other HEENT: No Head Aches, No Visual Changes, No Eye Pain, No Ear Pain, No Dysphasia, No Sinus Congestion, No Post Nasal Drip, No Sore Throat, No Other Pulmonary: No Dyspnea, No Cough, No Pleuritic Chest Pain, No Other Cardiovascular: Palpitations; No: Chest Pain, Orthopnea, Paroxysmal Noc. Dyspnea, Edema, Lt Headedness, Other Objective-Cardiology Exam Last Set of Vital Signs Vital Signs 11/05/22 11/05/22 11/05/22 11/05/22 04:15 05:32 06:00 06:30 Temp 38.1 Pulse 105 Resp 22 B/P (MAP) 117/76 (90) Pulse Ox 100 O2 Delivery Nasal Cannula O2 Flow Rate 2.00 I&O Intake and Output 11/05/22 00:00 Intake Total 4600 ml Output Total 1775 ml Balance 2825 ml Intake Oral 300 ml IV Total 4300 ml Output Urine Total 1775 ml Daily Weight Change No General: Alert, Oriented X3, Cooperative HEENT: Atraumatic, PERRLA Neck: Supple, No JVD, No Thyromegaly Lungs: Clear to Auscultation, Normal Air Movement Heart: Normal S1, Normal S2, Other (Tachycardia, systolic murmur) Abdomen: Normal Bowel Sounds, Soft, No Tenderness, No Hepatosplenomegaly, No Masses Extremities: No Clubbing, No Cyanosis, No Edema, Normal Pulses, No Tenderness/Swelling Skin: No Rashes, No Breakdown, No Significant Lesion Neuro: Normal Gait, Normal Speech, Strength at 5/5 X4 Ext, Normal Tone, Sensation Intact Psych/Mental Status: Mental Status NL, Mood NL Results Lab Laboratory Tests 11/04/22 15:25 11/04/22 20:01 11/05/22 04:57 A/P-Cardiology Admission Diagnosis Atrial flutter Tachycardia Hypotension Fever Assessment/Plan Paroxysmal atrial flutter Has been having episodes of tachycardia. Underwent cardioversion on November 04, 2022. Continued on Cardizem drip and I gave him 1 dose of amiodarone Went back to atrial fibrillation in the evening, I started amiodarone drip. Has been in and out of atrial flutter overnight. I will resume diet and continue with loading amiodarone. Continue to monitor Sepsis, fever and leukocytosis, borderline hypotension, receiving IV fluid and antibiotic Managed by primary care team CHADVASC score 1, for now he will require oral anticoagulation Palpitation, secondary to atrial flutter. Hypotension, probably secondary to tachycardia. Underlying sepsis cannot be excluded. ALTAGRACIA LOZANO MD November 05, 2022 11:30
[2022-11-05] MEDS ORDERED: METH2.5T PO (11:42)
[2022-11-05] MEDS ORDERED: FOLI1TAB33 PO (11:42)
[2022-11-05] MEDS ORDERED: MULT-1104 PO (11:42)
[2022-11-05] MEDS ORDERED: MELO15TA39 PO (11:42)
--- NOTE | 2022-11-05 13:20 | Progress Note ---
Subjective Subjective/Events-last exam Patient was in and out of a-flutter overnight. Reports increases in shortness of breath when in a-flutter. Continues to have some cough. Had fever overnight. Denies increase in swelling. Objective Exam Last Set of Vital Signs Vital Signs Date Time Temp Pulse Resp B/P (MAP) Pulse Ox O2 Delivery O2 Flow Rate FiO2 11/05/22 12:00 36.8 11/05/22 11:45 Nasal Cannula 2.00 11/05/22 11:00 85 13 108/65 (79) 94 Capillary Refill : Less Than 3 Seconds I&O Intake and Output 11/05/22 00:00 Intake Total 4600 ml Output Total 1775 ml Balance 2825 ml Intake Oral 300 ml IV Total 4300 ml Output Urine Total 1775 ml Daily Weight Change No General: Alert, Oriented X3, Cooperative Lungs: Other (crackles at the bases bilaterally) Heart: Regular Rate (converted to NSR while I was in the room) Abdomen: Soft Extremities: No Edema Neuro: Normal Speech Psych/Mental Status: Mental Status NL Results/Procedures Lab Laboratory Tests 11/04/22 13:50: Urine Color YELLOW, Urine Clarity CLEAR, Urine pH 7.0, Urine Specific [place] 1.010L, Urine Protein NEGATIVE, Urine Glucose (UA) NEGATIVE, Urine Ketones NEGATIVE, Urine Nitrite NEGATIVE, Urine Bilirubin NEGATIVE, Urine Urobilinogen 0.2, Urine Leukocyte Esterase NEGATIVE, Urine RBC (Auto) NEGATIVE, Urine RBC NONE, Urine WBC NONE, Urine Squamous Epithelial Cells NONE, Urine Crystals NONE, Urine Bacteria NEGATIVE, Urine Casts NONE, Urine Mucus NEGATIVE, Urine Culture Indicated NO, Urine Osmolality 373, Urine Random Sodium 64 11/04/22 15:25: Sodium Level 129L, Uric Acid 2.9, Thyroid Stimulating Hormone (TSH) 1.16 11/04/22 20:01: Sodium Level 129L 11/05/22 04:57: Sodium Level 128L, White Blood Count 6.3, Red Blood Count 4.81, Hemoglobin 15.9, Hematocrit 44, Mean Corpuscular Volume 92, Mean Corpuscular Hemoglobin 33, Mean Corpuscular Hemoglobin Concent 36, Red Cell Distribution Width 12.9, Platelet Count 144, Mean Platelet Volume 10.3, Immature Granulocyte % (Auto) 0, Neutrophils (%) (Auto) 87H, Lymphocytes (%) (Auto) 10L, Monocytes (%) (Auto) 2, Eosinophils (%) (Auto) 0, Basophils (%) (Auto) 0, Neutrophils # (Auto) 5.5, Lymphocytes # (Auto) 0.7L, Monocytes # (Auto) 0.1, Eosinophils # (Auto) 0.0, Basophils # (Auto) 0.0, Immature Granulocyte # (Auto) 0.0, Neutrophils % (Manual) 83, Lymphocytes % (Manual) 10, Monocytes % (Manual) 1, Band Neutrophils 6, Blood Morphology Comment NORMAL, Potassium Level 3.9, Chloride Level 102, Carbon Dioxide Level 18L, Anion Gap 8, Blood Urea Nitrogen 7, Creatinine 0.78, Estimat Glomerular Filtration Rate 106, BUN/Creatinine Ratio 9, Glucose Level 100, Calcium Level 7.5L, Corrected Calcium 8.5, Phosphorus Level 2.3, Magnesium Level 1.5L, Total Bilirubin 0.4, Aspartate Amino Transf (AST/SGOT) 25, Alanine Aminotransferase (ALT/SGPT) 16, Alkaline Phosphatase 34L, Total Protein 5.2L, Albumin 2.7L Radiology Date of Exam:11/04/22 CHEST 1 VIEW, AP/PA ONLY EXAMINATION: Chest 1 view HISTORY: ACC, HR, FEVER COMPARISON: None available. FINDINGS: Heart size and pulmonary vasculature are normal. Mild perihilar and bibasilar interstitial opacities present. No pleural effusion or pneumothorax. The osseous structures are intact. IMPRESSION: 1. Perihilar and bibasilar interstitial opacities which can be seen with pulmonary edema, atelectasis, or pneumonia. Assessment/Plan Assessment/Plan (1) Atrial flutter with rapid ventricular response Status: Acute Assessment & Plan: Admitted to ICU, Dr. Rae consulted for cardiology management. Treated w/ Cardizem drip and digoxin - resistant. Amiodarone bolus given. On Lovenox for clot prevention; will need po anticoagulation. 2D Echo ordered 11/05: Echo normal EF 50-55% continued current care by cardiology on metoprolol 25mg daily (2) Pneumonia Status: Acute Assessment & Plan: Fever and possible infiltrate on CXR. WBC normal; however patient is immunosuppressed due to RA treatment On Rocephin and zithromax Blood cultures pending. 11/05: wbc normal, left shift blood cultures prelim negative no evidence of sepsis; hypotension more likely secondary to arrhythmia continue antibiotics. Qualifiers: Qualified Codes: J18.9 - Pneumonia, unspecified organism (3) Chronic hyponatremia Status: Acute Assessment & Plan: - suspect SIADH - urine Na and osmolality ordered - given IVF in ED due to apparent hypovolemia and hypotension (from arrhythmia) - Na increased to 129 from 126; goal increase is 4-6 in 24h - may need fluid restriction if Na decreases or fails to correct. 11/05: - elevated Eve and UOsm c/w SIADH; uric acid <4 - Na 128 (down from 129) - DC IVF and fluid restrict - am cortisol ordered - Lasix 20mg given x1 as patient may have mild pulm edema - recommend low-dose CT chest as OP for screening due to tobacco history. NEMESIO ARTIS DO November 05, 2022 13:20
[2022-11-05] MEDS ORDERED: cefTRIAXone 1 GM/NS 50 ML IVPB IV SCH ×2 (15:00)
[2022-11-05] MEDS: AZITHROMYCIN 500 MG/NS 250 ML IVPB IV SCH ×2 (15:10)
[2022-11-05] MEDS: IBUPROFEN 600 MG (MOTRIN) TAB PO PRN (19:47)
[2022-11-05] MEDS ORDERED: NS IV 500 ML 500 ML IV PRN (20:15)
[2022-11-05] MEDS: MAGNESIUM 1 GM/100 ML IVPB 100 ML IV SCH ×4 (20:31→22:53)
[2022-11-05] MEDS ORDERED: MAGNESIUM 1 GM/100 ML IVPB 100 ML IV ONE (20:50)
[2022-11-05] MEDS: guaiFENesin/CODEINE (ROBITUSSIN AC) 10ML UDC PO PRN (21:20)
[2022-11-06] MEDS: MAGNESIUM 1 GM/100 ML IVPB 100 ML IV SCH ×2 (00:01→05:07)
[2022-11-06] MEDS: VASOPRESSIN INJECTION 20 UNIT in NS (IVPB) 100 ML IV SCH ×3 (01:04→23:35)
[2022-11-06] MEDS: guaiFENesin/CODEINE (ROBITUSSIN AC) 10ML UDC PO PRN ×4 (02:13→23:10)
[2022-11-06] MEDS: IBUPROFEN 600 MG (MOTRIN) TAB PO PRN ×4 (02:13→23:11)
[2022-11-06] MEDS ORDERED: FUROSEMIDE 40 MG/4 ML INJ (LASIX) IVP ONE (02:45)
[2022-11-06 04:24] LABS: BASOPHILS % (AUTO) 0 % (0-10); EOSINOPHILS % (AUTO) 0 % (0-10); HEMATOCRIT 43 % (40-54); LYMPHOCYTES # (AUTO) 0.7 10^3/uL (1.0-4.0); LYMPHOCYTES % (AUTO) 7 % (12-44); MEAN CORPUSCULAR HEMOGLOBIN 34 pg (25-34); MEAN CORPUSCULAR HGB CONC 37 g/dL (32-36); MEAN CORPUSCULAR VOLUME 91 fL (80-99); MEAN PLATELET VOLUME 10.9 fL (9.0-12.2); MONOCYTES # (AUTO) 0.2 10^3/uL (0.0-1.0); MONOCYTES % (AUTO) 2 % (0-12); NEUTROPHILS # (AUTO) 8.5 10^3/uL (1.8-7.8); NEUTROPHILS % (AUTO) 91 % (42-75); PLATELET COUNT 184 10^3/uL (130-400); WHITE BLOOD COUNT 9.3 10^3/uL (4.3-11.0)
[2022-11-06 04:39] LABS: POTASSIUM 3.7 MMOL/L (3.6-5.0)
[2022-11-06 04:45] LABS: CREATININE SERUM 0.79 MG/DL (0.60-1.30)
[2022-11-06 04:47] LABS: MAGNESIUM 2.2 MG/DL (1.6-2.4)
[2022-11-06] MEDS: POTASSIUM CL 10MEQ/50ML IVPB 50 ML IV SCH (05:07)
[2022-11-06] MEDS: KCL 20 MEQ TAB (K-DUR) PO SCH (05:07)
--- NOTE | 2022-11-06 07:29 | Diagnostic Imaging Report ---
CHEST 1 VIEW, AP/PA ONLY Indication: Hypoxia Comparison: 11/04/2022 Findings: New extensive consolidation throughout the right lung. Patchy opacities are developing in the left upper lung zone. No pleural effusion or pneumothorax. Normal heart size. Impression: 1. New bilateral consolidations have a differential that would include pneumonia, asymmetric pulmonary edema and/or pulmonary hemorrhage. Dictated by: Dictated on workstation # [id number]
[2022-11-06] MEDS ORDERED: KCL 20 MEQ TAB (K-DUR) PO ONE (08:00)
[2022-11-06] MEDS: ASPIRIN E.C. 81 MG (ECOTRIN) TAB PO SCH (08:12)
[2022-11-06] MEDS: AMIODARONE 200 MG (CORDARONE) TAB PO SCH ×2 (08:13→21:10)
[2022-11-06] MEDS: PANTOPRAZOLE 40 MG (PROTONIX) TAB PO SCH (08:13)
[2022-11-06] MEDS: ACETAMINOPHEN 500 MG TAB (TYLENOL) PO PRN ×2 (08:31→21:16)
--- NOTE | 2022-11-06 08:37 | Cardiology Progress Note ---
Subjective Date Seen by Provider: November 06, 2022 Time Seen by Provider: 08:35 Subjective/Events-last exam Patient is laying down in bed, still complaining of fatigue, having fever on and off Review of Systems General: No Chills, No Night Sweats; Fatigue; No Malaise, No Appetite, No Other HEENT: No Head Aches, No Visual Changes, No Eye Pain, No Ear Pain, No Dysphasia, No Sinus Congestion, No Post Nasal Drip, No Sore Throat, No Other Pulmonary: Dyspnea; No Cough, No Pleuritic Chest Pain, No Other Cardiovascular: No: Chest Pain, Palpitations, Orthopnea, Paroxysmal Noc. Dyspnea, Edema, Lt Headedness, Other Objective-Cardiology Exam Last Set of Vital Signs Vital Signs 11/06/22 11/06/22 11/06/22 11/06/22 05:00 06:00 07:00 08:32 Temp 38.5 Pulse 94 Resp 20 B/P (MAP) 104/65 (78) Pulse Ox 90 O2 Delivery High Flow N/C O2 Flow Rate 8.00 I&O Intake and Output 11/05/22 23:59 Intake Total 3000 ml Output Total 1675 ml Balance 1325 ml Intake Oral 1075 ml IV Total 1925 ml Output Urine Total 1675 ml # Voids 3 # Bowel Movements 2 General: Alert, Oriented X3, Cooperative HEENT: Atraumatic, PERRLA Neck: Supple, No JVD, No Thyromegaly Lungs: Other (crackles at the bases bilaterally) Heart: Regular Rate (converted to NSR while I was in the room), Normal S1, Normal S2 Abdomen: Soft Extremities: No Edema Skin: No Rashes, No Breakdown, No Significant Lesion Neuro: Normal Speech Psych/Mental Status: Mental Status NL Results Lab Laboratory Tests 11/06/22 04:17 A/P-Cardiology Admission Diagnosis Atrial flutter Tachycardia Hypotension Fever Assessment/Plan Paroxysmal atrial flutter, has been having multiple episodes. Underwent electrical cardioversion on November 04, 2022 Appears to be responding well to amiodarone bolus and a drip Was maintained on oral amiodarone loading dose. Pneumonia, receiving antibiotic. Chest x-ray appeared to be showing evolving pneumonia. Has been having episodes of tachycardia. Underwent cardioversion on November 04 3. Sepsis, fever and leukocytosis, borderline hypotension, improved Received antibiotic and managed by primary care physician. CHADVASC score 1, for now he will require oral anticoagulation Palpitation, secondary to atrial flutter. Hypotension, probably secondary to tachycardia. Underlying sepsis cannot be excluded. ALTAGRACIA LOZANO MD November 06, 2022 08:37
[2022-11-06] MEDS ORDERED: meTOprolol TARTRATE 25 MG (LOPRESSOR) TABLET PO SCH (09:00)
[2022-11-06] MEDS ORDERED: PIPERACILLIN SODIUM/TAZOBACTAM 4.5 GM in NS (IVPB) 100 ML IV SCH (09:00)
[2022-11-06] MEDS ORDERED: PIPERACILLIN SODIUM/TAZOBACTAM 4.5 GM in NS (IVPB) 100 ML IV ONE (09:00)
[2022-11-06] MEDS: NOREPINEPHRINE 8 MG/250 ML 250 ML IV SCH (09:36)
[2022-11-06] MEDS ORDERED: VANCOMYCIN INJECTION 0.1 MG in NS (IVPB) 250 ML IV SCH (09:45)
[2022-11-06] MEDS: ENOXAPARIN 100 MG/1 ML (LOVENOX) SYR SC SCH ×2 (09:57→21:10)
[2022-11-06] MEDS ORDERED: VANCOMYCIN 1,750 MG/NS 500 ML IVPB IV SCH ×2 (10:00)
[2022-11-06] MEDS ORDERED: VANCOMYCIN 1,750 MG/NS 500 ML IVPB IV NR ×2 (10:00)
[2022-11-06] MEDS ORDERED: ANIDULAFUNGIN INJECTION 200 MG in NS (IVPB) 250 ML IV ONE (10:00)
--- NOTE | 2022-11-06 11:28 | Diagnostic Imaging Report ---
CT CHEST WO TECHNIQUE: Multiple contiguous axial images were obtained through the chest without the use of intravenous contrast. All CT scans use one or more of the following dose optimizing techniques: automated exposure control, MA and/or KvP adjustment based on a patient size and exam type, or iterative reconstruction. INDICATION: Worsening pneumonia, chronic hyponatremia. COMPARISON: Chest radiography from earlier same day. FINDINGS: Lungs and airway: No abnormality trachea. Extensive consolidations are present in the right lower lobe with air bronchograms. Mixed groundglass and consolidations are also present in the right middle, right upper and left upper lobes. Pleura: Small bilateral pleural effusions are nonloculated. Heart and mediastinum: No supraclavicular or axillary lymphadenopathy. There are multiple enlarged mediastinal lymph nodes. The largest is a 2.1 cm subcarinal lymph node. Heart is not enlarged. There is no pericardial effusion. Normal caliber thoracic aorta. Upper abdomen: Cholelithiasis. No features of acute cholecystitis. No concerning abnormality in the upper abdomen. Musculoskeletal: No lytic or blastic skeletal lesions. IMPRESSION: 1. Bilateral pulmonary consolidations and groundglass may be due to a mixture of pneumonia and pulmonary edema. A follow-up CT chest with IV contrast in 6-8 weeks is recommended to ensure resolution and exclude underlying malignancy. 2. Enlarged mediastinal lymph nodes are likely reactive in nature. Attention on follow-up is advised. 3. Small bilateral pleural effusions. Dictated by: Dictated on workstation # [id number]
--- NOTE | 2022-11-06 11:40 | Progress Note ---
Subjective Subjective/Events-last exam Patient reports sleeping better overnight with cough medicine. Continued to spike fevers overnight; CXR done this am worse infiltrate on the R. Increase O2 need overnight; currently on 8L with sats in the low 90's. Patient denies increase difficulty breathing but reports increase in flank discomfort. HR i mproved overnight and did not increase with fever. Objective Exam Last Set of Vital Signs Vital Signs Date Time Temp Pulse Resp B/P (MAP) Pulse Ox O2 Delivery O2 Flow Rate FiO2 11/06/22 10:59 37.4 11/06/22 10:00 88 24 98/65 (72) 90 High Flow N/C 8.00 Capillary Refill : Less Than 3 Seconds I&O Intake and Output 11/06/22 00:00 Intake Total 3100 ml Output Total 1675 ml Balance 1425 ml Intake Oral 1075 ml IV Total 2025 ml Output Urine Total 1675 ml # Voids 3 # Bowel Movements 2 General: Alert, Oriented X3, Cooperative Lungs: Other (Crackles R side and L base; no wheezes or respiratory distress) Heart: Regular Rate (irregular) Abdomen: Soft Extremities: No Edema Skin: No Rashes Neuro: Normal Speech Psych/Mental Status: Mental Status NL, Mood NL Results/Procedures Lab Laboratory Tests 11/06/22 04:17: White Blood Count 9.3, Red Blood Count 4.76, Hemoglobin 16.0, Hematocrit 43, Mean Corpuscular Volume 91, Mean Corpuscular Hemoglobin 34, Mean Corpuscular Hemoglobin Concent 37H, Red Cell Distribution Width 12.9, Platelet Count 184, Mean Platelet Volume 10.9, Immature Granulocyte % (Auto) 0, Neutrophils (%) (Auto) 91H, Lymphocytes (%) (Auto) 7L, Monocytes (%) (Auto) 2, Eosinophils (%) (Auto) 0, Basophils (%) (Auto) 0, Neutrophils # (Auto) 8.5H, Lymphocytes # (Auto) 0.7L, Monocytes # (Auto) 0.2, Eosinophils # (Auto) 0.0, Basophils # (Auto) 0.0, Immature Granulocyte # (Auto) 0.0, Sodium Level 129L, Potassium Level 3.7, Chloride Level 99, Carbon Dioxide Level 20L, Anion Gap 10, Blood Urea Nitrogen 9, Creatinine 0.79, Estimat Glomerular Filtration Rate 106, BUN/Creatinine Ratio 11, Glucose Level 106H, Calcium Level 8.0L, Magnesium Level 2.2 Microbiology 11/04/22 Blood Culture - Preliminary, Resulted No growth Radiology CHEST 1 VIEW, AP/PA ONLY Indication: Hypoxia Comparison: 11/04/2022 Findings: New extensive consolidation throughout the right lung. Patchy opacities are developing in the left upper lung zone. No pleural effusion or pneumothorax. Normal heart size. Impression: 1. New bilateral consolidations have a differential that would include pneumonia, asymmetric pulmonary edema and/or pulmonary hemorrhage. Dictated by: Dictated on workstation # [id number] Dict: 11/06/22 0726 Trans: 11/06/22 0820 [id number] Interpreted by: NOE PIZANO MD Date of Exam:11/06/[address] CHEST WO TECHNIQUE: Multiple contiguous axial images were obtained through the chest without the use of intravenous contrast. All CT scans use one or more of the following dose optimizing techniques: automated exposure control, MA and/or KvP adjustment based on a patient size and exam type, or iterative reconstruction. INDICATION: Worsening pneumonia, chronic hyponatremia. COMPARISON: Chest radiography from earlier same day. FINDINGS: Lungs and airway: No abnormality trachea. Extensive consolidations are present in the right lower lobe with air bronchograms. Mixed groundglass and consolidations are also present in the right middle, right upper and left upper lobes. Pleura: Small bilateral pleural effusions are nonloculated. Heart and mediastinum: No supraclavicular or axillary lymphadenopathy. There are multiple enlarged mediastinal lymph nodes. The largest is a 2.1 cm subcarinal lymph node. Heart is not enlarged. There is no pericardial effusion. Normal caliber thoracic aorta. Upper abdomen: Cholelithiasis. No features of acute cholecystitis. No concerning abnormality in the upper abdomen. Musculoskeletal: No lytic or blastic skeletal lesions. IMPRESSION: 1. Bilateral pulmonary consolidations and groundglass may be due to a mixture of pneumonia and pulmonary edema. A follow-up CT chest with IV contrast in 6-8 weeks is recommended to ensure resolution and exclude underlying malignancy. 2. Enlarged mediastinal lymph nodes are likely reactive in nature. Attention on follow-up is advised. 3. Small bilateral pleural effusions. Dictated on workstation # [id number] Dict: 11/06/22 1123 Trans: 11/06/22 1128 [id number] Interpreted by: NOE PIZANO MD Assessment/Plan Assessment/Plan (1) Atrial flutter with rapid ventricular response Status: Acute Assessment & Plan: Admitted to ICU, Dr. Rea consulted for cardiology management. Treated w/ Cardizem drip and digoxin - resistant. Amiodarone bolus given. On Lovenox for clot prevention; will need po anticoagulation. 2D Echo ordered 11/05: Echo normal EF 50-55% continued current care by cardiology on metoprolol 25mg daily 11/06: Rate controlled. BP normal Continue current management per cardiology. (2) Pneumonia Status: Acute Assessment & Plan: Fever and possible infiltrate on CXR. WBC normal; however patient is immunosuppressed due to RA treatment On Rocephin and zithromax Blood cultures pending. 11/05: wbc normal, left shift blood cultures prelim negative no evidence of sepsis; hypotension more likely secondary to arrhythmia continue antibiotics. 11/06: increase infiltrate on R side per CXR, continued fevers up to 103, wbc 9.3 w/ 91%Neut; requiring 8L NC - increase antibiotic coverage - change to Zosyn, zithromax, vanco - add Eraxis for fungal coverage due to patient's immunosuppressed status - check legionella ag - blood cultures negative; sputum culture pending - CT chest - consolidation/ground-glass infiltrate c/w possible mix of pneumonia and pulm edema; mediastinal LAD likely reactive - recommend f/u CT w/ contrast in 6-8wk - add Lasix Qualifiers: Qualified Codes: J18.9 - Pneumonia, unspecified organism (3) Chronic hyponatremia Status: Acute Assessment & Plan: - suspect SIADH - urine Na and osmolality ordered - given IVF in ED due to apparent hypovolemia and hypotension (from arrhythmia) - Na increased to 129 from 126; goal increase is 4-6 in 24h - may need fluid restriction if Na decreases or fails to correct. 5/3: - elevated Eve and UOsm c/w SIADH; uric acid <4 - Na 128 (down from 129) - DC IVF and fluid restrict - am cortisol ordered - Lasix 20mg given x1 as patient may have mild pulm edema - recommend low-dose CT chest as OP for screening due to tobacco history. 11/06: - Na 129 - am cortisol level pending - continue fluid restriction. NEMESIO ARTIS DO November 06, 2022 11:40
--- NOTE | 2022-11-06 11:56 | Tele-ICU Progress Note ---
Subjective Date Seen by a Provider: November 06, 2022 Time Seen by a Provider: 11:04 Subjective/Events-last exam (Tele-ICU Physician , Progress Note ) Service provided via interactive audio and video [facility] system to a patient admitted to ICU bed in [facility]. Patient is seen today due to persistent need of ICU care Available chart/ vitals / labs / Images reviewed Video assessment done using teleICU camera, rest of exam as per RN Discussed with RN Events overnight : FEBRILE hemodynamically stable Respiratory - 8l I/O = ++ Drips: Pressors- no Hospital course: (11/04) 52M Admitted with Aflutter RVR, hypotension and fever. Amio bolus and adenosine given in ER. 11/05--amiodarone bolus and a drip- stopped , on PO 11/06- FEVER , Fio2 8 L - - changed 11/06 to zosyn , z amx , vanco and antifungal , CT chest A/P Paroxysmal atrial flutter, has been having multiple episodes. -s/pelectrical cardioversion on November 04, 2022-DCCV with success but later patient converted back to Aflutter. -amiodarone bolus and a drip- stopped , on PO -AC with malick 90 q 12 Pneumonia, CXR is worsenign on RIGHT 11/06, febrile -NEG covif and flu 11/04 - immunocompromized - on methotrexae for RA - receiving antibiotic; changed 11/06 to zosyn , z amx , vanco and antifungal - CT chest 11/06 pending Hypoxia ( due to PNA +/- some VO - received 8L IVF last 48 h - ON 8 L - worsening - expanded ABX coverage , not on IVF Hypotension - ? 2/2 tachycardia vs sepsis - cortisol pending - monitor RA - metothrexate FIELD LOGISTICS COORDINATOR Lines : periph , (Central Line Necessity Reviewed) Glaser: void OG: Nutrition: po Analgesia: Anxiety/ delirium VTE Prophylaxis: malick 90 q 12 Stress Ulcer Prophylaxis: ppi Plans in collaboration with bedside consultants and IM MDs. Discussed with RN to reach out if any questions or concerns Case and care daily discussed on multidisciplinary rounds ( RN, PharmD, Director Payment , Respiratory Therapy, printed circuit board reworker ) A total of 32 minutes of critical care time was devoted to this patient today, required to treat and/or prevent further deterioration of critical care condition ( as above ) . I am remotely monitoring this patient from another state. I am unable to do the bedside exam, and history/physical and pertinent information is taken from other notes in the computer and bedside staff. Sepsis Event Evaluation Height, Weight, BMI Height: '" Weight: lbs. oz. kg; 27.77 BMI Method: Exam Exam Patient acknowledged, consented, and participated in this virtual visit which was conducted using real time audio/video Vital Signs Date Time Temp Pulse Resp B/P (MAP) Pulse Ox O2 Delivery O2 Flow Rate FiO2 11/06/22 10:59 37.4 11/06/22 10:00 88 24 98/65 (72) 90 High Flow N/C 8.00 11/06/22 09:50 37.7 11/06/22 09:00 92 27 105/67 (75) 90 High Flow N/C 8.00 11/06/22 08:32 38.5 11/06/22 08:31 38.5 11/06/22 08:00 90 107/70 (80) 94 8.00 11/06/22 07:52 37.3 11/06/22 07:00 85 29 100/67 (76) 90 High Flow N/C 8.00 11/06/22 07:00 94 11/06/22 06:00 85 20 104/65 (78) 90 11/06/22 05:00 78 26 94/63 (73) 89 High Flow N/C 8.00 11/06/22 04:15 92 11/06/22 04:07 87 High Flow N/C 8.00 11/06/22 04:05 Nasal Cannula 6.00 11/06/22 04:00 37.3 98 24 111/66 (80) 88 Nasal Cannula 6.00 11/06/22 03:00 37.9 95 24 96/62 (73) 88 11/06/22 02:20 88 Nasal Cannula 5.00 11/06/22 02:13 38.4 11/06/22 02:10 38.4 11/06/22 02:00 93 22 111/66 (81) 90 11/06/22 01:00 85 22 111/67 (82) 90 11/06/22 01:00 84 11/06/22 00:00 37.7 80 24 102/72 (83) 92 Nasal Cannula 4.00 11/05/22 23:30 Nasal Cannula 2.00 11/05/22 23:00 80 23 96/58 (66) 91 11/05/22 22:06 89 31 88 Nasal Cannula 4.00 11/05/22 22:00 89 23 99/58 (72) 90 11/05/22 21:00 37.7 82 25 99/66 (76) 93 Nasal Cannula 3.00 11/05/22 20:00 93 25 116/69 (87) 90 Nasal Cannula 3.00 11/05/22 19:50 39.9 11/05/22 19:50 89 Nasal Cannula 3.00 11/05/22 19:50 Nasal Cannula 2.00 11/05/22 19:47 39.9 11/05/22 19:00 101 24 103/73 (83) 93 Nasal Cannula 2.00 11/05/22 19:00 106 11/05/22 18:00 85 22 106/68 (81) 94 Nasal Cannula 2.00 11/05/22 17:00 98 15 110/69 (83) 90 Nasal Cannula 2.00 11/05/22 16:00 Nasal Cannula 2.00 11/05/22 16:00 89 33 100/67 (78) 90 Nasal Cannula 2.00 11/05/22 15:40 37.4 11/05/22 15:10 86 11/05/22 15:00 89 24 92/57 (69) 92 Nasal Cannula 2.00 11/05/22 14:00 87 27 100/46 (64) 97 Nasal Cannula 2.00 11/05/22 13:19 93 11/05/22 13:00 105 32 105/64 (78) 94 Nasal Cannula 2.00 11/05/22 12:20 85 11/05/22 12:18 80 11/05/22 12:00 85 26 100/58 (72) 95 Nasal Cannula 2.00 11/05/22 12:00 36.8 11/05/22 11:59 74 I & O 11/06/22 07:00 Intake Total 1975 ml Output Total 2625 ml Balance -650 ml Height & Weight Height: '" Weight: lbs. oz. kg; 27.77 BMI Method: General Appearance: No Apparent Distress, WD/WN HEENT: PERRL/EOMI, TMs Normal, Normal ENT Inspection, Pharynx Normal, Moist Mucous Membranes Neck: Full Range of Motion, Normal Inspection, Non Tender, Supple, Carotid Bruit Respiratory: Chest Non Tender, Normal Breath Sounds, No Accessory Muscle Use, No Respiratory Distress Cardiovascular: No Edema, No Gallop, No JVD, No Murmur, Normal Peripheral Pulses Capillary Refill: Less Than 3 Seconds Gastrointestinal: non tender, soft Extremity: Normal Capillary Refill, Normal Inspection, Normal Range of Motion, Non Tender, No Calf Tenderness, No Pedal Edema Neurologic/Psychiatric: Alert, Oriented x3, No Motor/Sensory Deficits, Normal Mood/Affect Skin: Normal Color, Warm/Dry Lymphatic: No Adenopathy Results Lab Laboratory Tests 11/04/22 15:25 11/04/22 20:01 11/05/22 04:57 11/06/22 04:17 Assessment/Plan Assessment/Plan 1 BRISEIDA GOULD MD November 06, 2022 11:56
[2022-11-06] MEDS: FUROSEMIDE 40 MG/4 ML INJ (LASIX) IVP SCH ×2 (12:09→16:28)
[2022-11-06] MEDS: AZITHROMYCIN INJECTION 500 MG in NS (IVPB) 250 ML IV SCH (16:12)
[2022-11-06] MEDS: PIPERACILLIN SODIUM/TAZOBACTAM 4.5 GM in NS (IVPB) 100 ML IV SCH ×2 (16:12→22:15)
[2022-11-06] MEDS: VANCOMYCIN 1250 MG/NS 250 ML PREMIX IV SCH (21:10)
[2022-11-07] MEDS: NOREPINEPHRINE 8 MG/250 ML 250 ML IV SCH ×2 (03:16→18:15)
[2022-11-07 04:31] LABS: BASOPHILS % (AUTO) 0 % (0-10); EOSINOPHILS # (AUTO) 0.1 10^3/uL (0.0-0.3); EOSINOPHILS % (AUTO) 1 % (0-10); HEMATOCRIT 41 % (40-54); HEMOGLOBIN 14.7 g/dL (13.3-17.7); LYMPHOCYTES # (AUTO) 1.7 10^3/uL (1.0-4.0); LYMPHOCYTES % (AUTO) 19 % (12-44); MEAN CORPUSCULAR HEMOGLOBIN 33 pg (25-34); MEAN CORPUSCULAR HGB CONC 36 g/dL (32-36); MEAN CORPUSCULAR VOLUME 93 fL (80-99); MEAN PLATELET VOLUME 10.6 fL (9.0-12.2); MONOCYTES # (AUTO) 0.2 10^3/uL (0.0-1.0); MONOCYTES % (AUTO) 3 % (0-12); NEUTROPHILS # (AUTO) 6.8 10^3/uL (1.8-7.8); NEUTROPHILS % (AUTO) 76 % (42-75); PLATELET COUNT 164 10^3/uL (130-400); WHITE BLOOD COUNT 8.9 10^3/uL (4.3-11.0)
[2022-11-07 04:59] LABS: ALBUMIN 2.3 GM/DL (3.2-4.5); BILIRUBIN,TOTAL 0.4 MG/DL (0.1-1.0); CALCIUM 7.9 MG/DL (8.5-10.1); CREATININE SERUM 1.06 MG/DL (0.60-1.30); MAGNESIUM 2.1 MG/DL (1.6-2.4); POTASSIUM 4.2 MMOL/L (3.6-5.0)
[2022-11-07] MEDS: POTASSIUM CL 10MEQ/50ML IVPB 50 ML IV SCH (05:03)
[2022-11-07] MEDS: MAGNESIUM 1 GM/100 ML IVPB 100 ML IV SCH (05:03)
[2022-11-07] MEDS: KCL 20 MEQ TAB (K-DUR) PO SCH (05:03)
[2022-11-07 05:19] LABS: TOTAL PROTEIN 5.4 GM/DL (6.4-8.2)
[2022-11-07] MEDS: FUROSEMIDE 40 MG/4 ML INJ (LASIX) IVP SCH (06:17)
[2022-11-07] MEDS: PIPERACILLIN SODIUM/TAZOBACTAM 4.5 GM in NS (IVPB) 100 ML IV SCH ×3 (06:17→22:36)
[2022-11-07] MEDS: guaiFENesin/CODEINE (ROBITUSSIN AC) 10ML UDC PO PRN ×2 (06:17→21:25)
--- NOTE | 2022-11-07 07:06 | Progress Note ---
Subjective Subjective/Events-last exam Rested well overnight. Suppl O2 decreased to 4L. Feeling winded and fatigued with activity, otherwise denies SOA. Rhythm more stable overnight, denies palpitations. Objective Exam Last Set of Vital Signs Vital Signs Date Time Temp Pulse Resp B/P (MAP) Pulse Ox O2 Delivery O2 Flow Rate FiO2 11/07/22 06:24 37.1 92 High Flow N/C 8.00 11/07/22 06:00 81 30 107/66 (80) Capillary Refill : Less Than 3 Seconds I&O Intake and Output 11/07/22 00:00 Intake Total 3117.5 ml Output Total 3375 ml Balance -257.5 ml Intake Oral 1550 ml IV Total 1567.5 ml Output Urine Total 3375 ml # Voids 2 General: Alert, Oriented X3, Cooperative Lungs: Other (decreased BS R; crackles RLL) Heart: Regular Rate Abdomen: Normal Bowel Sounds Extremities: No Edema Psych/Mental Status: Mental Status NL, Mood NL Results/Procedures Lab Laboratory Tests 11/07/22 04:22: White Blood Count 8.9, Red Blood Count 4.41, Hemoglobin 14.7, Hematocrit 41, Mean Corpuscular Volume 93, Mean Corpuscular Hemoglobin 33, Mean Corpuscular Hemoglobin Concent 36, Red Cell Distribution Width 13.4, Platelet Count 164, Mean Platelet Volume 10.6, Immature Granulocyte % (Auto) 1, Neutrophils (%) (Auto) 76H, Lymphocytes (%) (Auto) 19, Monocytes (%) (Auto) 3, Eosinophils (%) (Auto) 1, Basophils (%) (Auto) 0, Neutrophils # (Auto) 6.8, Lymphocytes # (Auto) 1.7, Monocytes # (Auto) 0.2, Eosinophils # (Auto) 0.1, Basophils # (Auto) 0.0, I mmature Granulocyte # (Auto) 0.1, Sodium Level 134L, Potassium Level 4.2, Chloride Level 100, Carbon Dioxide Level 28, Anion Gap 6, Blood Urea Nitrogen 13, Creatinine 1.06, Estimat Glomerular Filtration Rate 83, BUN/Creatinine Ratio 12, Glucose Level 94, Calcium Level 7.9L, Corrected Calcium 9.3, Magnesium Level 2.1, Total Bilirubin 0.4, Aspartate Amino Transf (AST/SGOT) 50H, Alanine Aminotransferase (ALT/SGPT) 28, Alkaline Phosphatase 42, Total Protein 5.4L, Albumin 2.3L Microbiology 11/04/22 Blood Culture - Preliminary, Resulted No growth Radiology Date of Exam:11/07/22 CHEST 1 VIEW, AP/PA ONLY EXAMINATION: Chest 1 view HISTORY: Followup pneumonia. Shortness of breath. COMPARISON: 11/06/2022. FINDINGS: Increasing patchy and consolidative opacities are seen throughout the right hemithorax with increasing hazy opacities in the left hemithorax. Possible small right pleural effusion. No pneumothorax. Stable cardiac silhouette. IMPRESSION: 1. Worsening pneumonia involving both lungs. Possible small pleural effusion on the right. Dictated by: Dictated on workstation # [id number] Dict: 11/07/22 0754 Trans: 11/07/22 0811 [id number] Interpreted by: ARLINE BANKS DO Assessment/Plan Assessment/Plan (1) Pneumonia Status: Acute Assessment & Plan: -Fever and possible infiltrate on CXR on admission. -WBC normal; however patient is immunosuppressed due to RA treatment -hypotension more likely secondary to arrhythmia vs sepsis -Initially treated with Rocephin and zithromax; increase antibiotic coverage 11/06 due to worsening infiltrate/fever/hypoxia- change to Zosyn, zithromax, vanco; add Eraxis for fungal coverage due to patient's immunosuppressed status - check legionella ag - blood cultures negative; sputum culture pending - CT chest - consolidation/ground-glass infiltrate c/w possible mix of pneumonia and pulm edema; mediastinal LAD likely reactive - recommend f/u CT w/ contrast in 6-8wk - added Lasix 11/07: - fever and wbc improved - CXR increased infiltrate throughout - O2 weaned to 3-4L; sats low 90's - continue current antibiotics; consider transfer to floor if continued improvement Qualifiers: Qualified Codes: J18.9 - Pneumonia, unspecified organism (2) Paroxysmal atrial flutter Status: Acute Assessment & Plan: Admitted to ICU 11/04 with A-flutter with RVR, Dr. Rae consulted for cardiology management. Treated w/ Cardizem drip, digoxin and amiodarone bolus given. Underwent electrical cardioversion on 11/04/22 Now on oral amiodarone and metoprolol. On Lovenox for clot prevention; will need po anticoagulation. CHADVASC Score 1 2D Echo 11/05 normal EF 50-55% 11/07: stable; rate/rhythm improved (3) Chronic hyponatremia Status: Acute Assessment & Plan: suspect SIADH - given IVF in ED due to apparent hypovolemia and hypotension (from arrhythmia); Na increased to 129 from 126; goal increase is 4-6 in 24h - 11/05 Na 128 (down from 129); DC IVF and fluid restrict 1500mL - elevated Eve and UOsm c/w SIADH; uric acid <4 - am cortisol normal - Lasix given for suspected pulm edema - CT chest done 11/06 - worsening infiltrate with probable mix of edema; mediastinal LAD - likely reactive; recommend repeat CT chest w/ contrast in 6- 8wk for follow-up 11/07: Na 134 I/O 3217/3375; -157mL 90kg NEMESIO ARTIS DO November 07, 2022 07:06
[2022-11-07] MEDS: ASPIRIN E.C. 81 MG (ECOTRIN) TAB PO SCH (07:54)
[2022-11-07] MEDS: PANTOPRAZOLE 40 MG (PROTONIX) TAB PO SCH (07:54)
[2022-11-07] MEDS: AMIODARONE 200 MG (CORDARONE) TAB PO SCH ×2 (07:54→21:25)
--- NOTE | 2022-11-07 07:57 | Diagnostic Imaging Report ---
EXAMINATION: Chest 1 view HISTORY: Followup pneumonia. Shortness of breath. COMPARISON: 11/06/2022. FINDINGS: Increasing patchy and consolidative opacities are seen throughout the right hemithorax with increasing hazy opacities in the left hemithorax. Possible small right pleural effusion. No pneumothorax. Stable cardiac silhouette. IMPRESSION: 1. Worsening pneumonia involving both lungs. Possible small pleural effusion on the right. Dictated by: Dictated on workstation # [id number]
[2022-11-07] MEDS: ACETAMINOPHEN 500 MG TAB (TYLENOL) PO PRN (08:40)
[2022-11-07] MEDS: ANIDULAFUNGIN INJECTION 100 MG in NS (IVPB) 100 ML IV SCH (09:32)
--- NOTE | 2022-11-07 09:43 | Cardiology Progress Note ---
Subjective Date Seen by Provider: November 07, 2022 Time Seen by Provider: 09:41 Subjective/Events-last exam Patient was seen at bedside, laying down comfortably, complaining of fatigue and loss of energy. Review of Systems General: No Chills, No Night Sweats; Fatigue, Malaise; No Appetite, No Other HEENT: No Head Aches, No Visual Changes, No Eye Pain, No Ear Pain, No Dys phasia, No Sinus Congestion, No Post Nasal Drip, No Sore Throat, No Other Pulmonary: Dyspnea; No Cough, No Pleuritic Chest Pain, No Other Cardiovascular: No: Chest Pain, Palpitations, Orthopnea, Paroxysmal Noc. Dyspnea, Edema, Lt Headedness, Other Objective-Cardiology Exam Last Set of Vital Signs Vital Signs 11/07/22 11/07/22 11/07/22 06:00 07:00 08:00 Temp 37.1 Pulse 81 Resp 30 B/P (MAP) 107/66 (80) Pulse Ox 94 O2 Delivery Nasal Cannula O2 Flow Rate 4.00 I&O Intake and Output 11/07/22 00:00 Intake Total 3117.5 ml Output Total 3375 ml Balance -257.5 ml Intake Oral 1550 ml IV Total 1567.5 ml Output Urine Total 3375 ml # Voids 2 General: Alert, Oriented X3, Cooperative HEENT: Atraumatic, PERRLA Neck: Supple, No JVD, No Thyromegaly Lungs: Other (Crackles R side and L base; no wheezes or respiratory distress) Heart: Regular Rate (irregular), Normal S1, Normal S2 Abdomen: Soft Extremities: No Edema Skin: No Rashes Neuro: Normal Speech Psych/Mental Status: Mental Status NL, Mood NL Results Lab Laboratory Tests 11/07/22 04:22 A/P-Cardiology Admission Diagnosis Atrial flutter Tachycardia Hypotension Fever Assessment/Plan Paroxysmal atrial flutter, has been having multiple episodes. Underwent electrical cardioversion on November 04, 2022 Responded well to the amiodarone bolus and a drip I will continue on amiodarone 400 twice daily loading dose. Continue to monitor 2D echo done on November 05, 2022 with normal LV size, EF 50 to 55%, mild mitral regurgitation, PA pressure 20 to 25 mmHg Pneumonia, receiving antibiotic. Chest x-ray appeared to be showing evolving pneumonia. Has been having episodes of tachycardia. Underwent cardioversion on November 04, 2022. Sepsis, Fever has been improving Blood pressure is more stable Continue to monitor CHADVASC score 1, for now he will require oral anticoagulation Palpitation, secondary to atrial flutter. Better at this time, monitor Hypotension, probably secondary to tachycardia. Blood pressure is more stable. Continue to monitor ALTAGRACIA LOZANO MD November 07, 2022 09:43
[2022-11-07] MEDS: ENOXAPARIN 100 MG/1 ML (LOVENOX) SYR SC SCH ×2 (10:40→21:25)
--- NOTE | 2022-11-07 10:40 | Tele-ICU Progress Note ---
Subjective Date Seen by a Provider: November 07, 2022 Time Seen by a Provider: 10:39 Subjective/Events-last exam (Tele-ICU Physician , Progress Note ) Service provided via interactive audio and video telecommunications E-CARE system to a patient admitted to ICU bed in [facility]. Patient is seen today due to persistent need of ICU care Available chart/ vitals / labs / Images reviewed Video assessment done using teleICU camera, rest of exam as per RN Discussed with RN Events overnight : FEBRILE hemodynamically stable Respiratory - 8l I/O = ++ Drips: Pressors- no Hospital course: (11/04) 52M Admitted with Aflutter RVR, hypotension and fever. Amio bolus and adenosine given in ER. 11/05--amiodarone bolus and a drip- stopped , on PO ECHO EF 50% , RVSP 20 11/06- FEVER , Fio2 8 L - - changed 11/06 to zosyn , z amx , vanco and antifungal , CT chest -bilat infiltrates and ground glass , small effusions 11/07- 3 L o2 A/P Paroxysmal atrial flutter, has been having multiple episodes. -s/pelectrical cardioversion on November 04, 2022-DCCV with success but later patient converted back to Aflutter. -ECHO EF 11/05/22 50% , RVSP 20 -amiodarone bolus and a drip- stopped , on PO -AC with malick 90 q 12 Pneumonia, CXR is worsenign on RIGHT 11/06, febrile -NEG covif and flu 11/04 - immunocompromized - on methotrexae for RA - receiving antibiotic; changed 11/06 to zosyn , z amx , vanco and antifungal - CT chest 11/06 - bilat infiltrates and ground glass , small effusions Hypoxia ( due to PNA +/- some VO - received 8L IVF 11/05-4 - On 3 l - better today , - expanded ABX coverage 11/06 , not on IVF Hypotension- better - ? 2/2 tachycardia vs sepsis - cortisol 18 on 11/06 - monitor Hyponatremia - inproving RA - metothrexate [employer] -ON HOLD Lines : periph , (Central Line Necessity Reviewed) Glaser: void OG: Nutrition: po Analgesia: Anxiety/ delirium VTE Prophylaxis: malick 90 q 12 Stress Ulcer Prophylaxis: ppi Plans in collaboration with bedside consultants and IM MDs. Discussed with RN to reach out if any questions or concerns Case and care daily discussed on multidisciplinary rounds ( RN, PharmD, Salesperson Parts , Respiratory Therapy, take away worker ) A total of 32 minutes of critical care time was devoted to this patient today, required to treat and/or prevent further deterioration of critical care condition ( as above ) . I am remotely monitoring this patient from another state. I am unable to do the bedside exam, and history/physical and pertinent information is taken from other notes in the computer and bedside staff. Sepsis Event Evaluation Height, Weight, BMI Height: '" Weight: lbs. oz. kg; 27.80 BMI Method: Exam Exam Patient acknowledged, consented, and participated in this virtual visit which was conducted using real time audio/video Vital Signs Date Time Temp Pulse Resp B/P (MAP) Pulse Ox O2 Delivery O2 Flow Rate FiO2 11/07/22 10:00 77 99/64 (76) 88 High Flow N/C 3.00 11/07/22 09:00 87 100/65 (77) 89 High Flow N/C 3.00 11/07/22 08:00 37.1 11/07/22 08:00 81 112/77 (89) 94 High Flow N/C 4.00 11/07/22 08:00 94 Nasal Cannula 4.00 11/07/22 07:00 81 11/07/22 07:00 77 104/70 (81) 97 High Flow N/C 8.00 11/07/22 06:24 37.1 92 High Flow N/C 8.00 11/07/22 06:00 81 30 107/66 (80) 91 High Flow N/C 8.00 11/07/22 05:00 78 25 107/69 (82) 91 High Flow N/C 8.00 11/07/22 04:00 91 High Flow N/C 8.00 11/07/22 04:00 77 27 99/67 (78) 91 High Flow N/C 8.00 11/07/22 04:00 37.0 11/07/22 03:16 73 95/66 11/07/22 03:00 69 26 99/72 (81) 91 High Flow N/C 8.00 11/07/22 02:00 73 26 92/65 (74) 91 High Flow N/C 8.00 11/07/22 01:00 75 26 96/65 (75) 91 High Flow N/C 8.00 11/07/22 01:00 73 11/07/22 00:00 81 25 95/66 (76) 91 High Flow N/C 8.00 11/07/22 00:00 37.7 11/06/22 23:59 95 High Flow N/C 8.00 11/06/22 23:35 81 95/66 11/06/22 23:11 37.8 11/06/22 23:00 81 26 103/63 (76) 91 High Flow N/C 8.00 11/06/22 22:00 94 21 102/56 (71) 90 High Flow N/C 8.00 11/06/22 21:46 37.6 11/06/22 21:16 37.8 11/06/22 21:00 84 30 89/62 (71) 93 High Flow N/C 8.00 11/06/22 20:00 37.5 11/06/22 20:00 92 High Flow N/C 8.00 11/06/22 20:00 90 26 94/61 (72) 91 High Flow N/C 8.00 11/06/22 19:00 85 99/61 (74) 92 High Flow N/C 8.00 11/06/22 19:00 83 11/06/22 18:00 97 20 93/54 (68) 90 High Flow N/C 8.00 11/06/22 17:00 37.5 11/06/22 17:00 99 26 117/78 (89) 90 High Flow N/C 8.00 11/06/22 16:38 37.3 11/06/22 16:25 94 High Flow N/C 8.00 11/06/22 16:00 84 29 105/64 (81) 93 High Flow N/C 8.00 11/06/22 16:00 37.4 11/06/22 15:15 37.3 11/06/22 15:00 82 35 92 High Flow N/C 8.00 11/06/22 14:00 80 25 90 High Flow N/C 8.00 11/06/22 13:00 89 33 90 High Flow N/C 8.00 11/06/22 12:55 96 11/06/22 12:02 95 High Flow N/C 7.00 11/06/22 12:00 111 110/69 (83) 95 High Flow N/C 8.00 11/06/22 12:00 38.8 11/06/22 11:45 High Flow N/C 8.00 11/06/22 11:00 86 95 High Flow N/C 8.00 11/06/22 10:59 37.4 I & O 11/07/22 06:59 Intake Total 2867.5 ml Output Total 2425 ml Balance 442.5 ml Height & Weight Height: '" Weight: lbs. oz. kg; 27.80 BMI Method: General Appearance: No Apparent Distress, WD/WN HEENT: PERRL/EOMI, TMs Normal, Normal ENT Inspection, Pharynx Normal, Moist Mucous Membranes Neck: Full Range of Motion, Normal Inspection, Non Tender, Supple, Carotid Bruit Respiratory: Chest Non Tender, Normal Breath Sounds, No Accessory Muscle Use, No Respiratory Distress Cardiovascular: No Edema, No Gallop, No JVD, No Murmur, Normal Peripheral Pulses Capillary Refill: Less Than 3 Seconds Gastrointestinal: non tender, soft Extremity: Normal Capillary Refill, Normal Inspection, Normal Range of Motion, Non Tender, No Calf Tenderness, No Pedal Edema Neurologic/Psychiatric: Alert, Oriented x3, No Motor/Sensory Deficits, Normal Mood/Affect Skin: Normal Color, Warm/Dry Lymphatic: No Adenopathy Results Lab Laboratory Tests 11/06/22 04:17 11/07/22 04:22 Assessment/Plan Assessment/Plan 1 BRISEIDA GOULD MD November 07, 2022 10:39
[2022-11-07] MEDS: VANCOMYCIN 1250 MG/NS 250 ML PREMIX IV SCH ×2 (10:41→21:25)
[2022-11-07] MEDS: VASOPRESSIN INJECTION 20 UNIT in NS (IVPB) 100 ML IV SCH ×2 (10:51→21:19)
[2022-11-07] MEDS: IBUPROFEN 600 MG (MOTRIN) TAB PO PRN (14:42)
[2022-11-07] MEDS: AZITHROMYCIN INJECTION 500 MG in NS (IVPB) 250 ML IV SCH (15:33)
[2022-11-07] MEDS ORDERED: TROUGH ORDER-PHARMACY XX NR (21:00)
[2022-11-08] MEDS: ACETAMINOPHEN 500 MG TAB (TYLENOL) PO PRN ×3 (00:41→23:50)
[2022-11-08 04:16] LABS: BASOPHILS % (AUTO) 0 % (0-10); EOSINOPHILS # (AUTO) 0.2 10^3/uL (0.0-0.3); EOSINOPHILS % (AUTO) 3 % (0-10); HEMATOCRIT 40 % (40-54); HEMOGLOBIN 14.1 g/dL (13.3-17.7); LYMPHOCYTES # (AUTO) 1.9 10^3/uL (1.0-4.0); LYMPHOCYTES % (AUTO) 24 % (12-44); MEAN CORPUSCULAR HEMOGLOBIN 33 pg (25-34); MEAN CORPUSCULAR HGB CONC 35 g/dL (32-36); MEAN CORPUSCULAR VOLUME 93 fL (80-99); MEAN PLATELET VOLUME 10.3 fL (9.0-12.2); MONOCYTES # (AUTO) 0.4 10^3/uL (0.0-1.0); MONOCYTES % (AUTO) 5 % (0-12); NEUTROPHILS # (AUTO) 5.2 10^3/uL (1.8-7.8); NEUTROPHILS % (AUTO) 67 % (42-75); PLATELET COUNT 221 10^3/uL (130-400); WHITE BLOOD COUNT 7.7 10^3/uL (4.3-11.0)
[2022-11-08 04:30] LABS: ALBUMIN 2.5 GM/DL (3.2-4.5)
[2022-11-08 04:31] LABS: POTASSIUM 3.8 MMOL/L (3.6-5.0)
[2022-11-08 04:32] LABS: CALCIUM 8.3 MG/DL (8.5-10.1)
[2022-11-08 04:33] LABS: TOTAL PROTEIN 5.4 GM/DL (6.4-8.2)
[2022-11-08 04:35] LABS: BILIRUBIN,TOTAL 0.4 MG/DL (0.1-1.0)
[2022-11-08 04:37] LABS: CREATININE SERUM 0.96 MG/DL (0.60-1.30)
[2022-11-08] MEDS: KCL 20 MEQ TAB (K-DUR) PO SCH (04:59)
[2022-11-08] MEDS: MAGNESIUM 1 GM/100 ML IVPB 100 ML IV SCH (04:59)
[2022-11-08] MEDS: POTASSIUM CL 10MEQ/50ML IVPB 50 ML IV SCH (04:59)
[2022-11-08] MEDS ORDERED: KCL 20 MEQ TAB (K-DUR) PO ONE (06:00)
[2022-11-08] MEDS: PIPERACILLIN SODIUM/TAZOBACTAM 4.5 GM in NS (IVPB) 100 ML IV SCH ×3 (06:22→23:46)
[2022-11-08] MEDS: VASOPRESSIN INJECTION 20 UNIT in NS (IVPB) 100 ML IV SCH (07:27)
[2022-11-08] MEDS: NOREPINEPHRINE 8 MG/250 ML 250 ML IV SCH (07:27)
--- NOTE | 2022-11-08 08:35 | Diagnostic Imaging Report ---
INDICATION: Pneumonia. Comparison is made with prior exam of 11/07/2022. FINDINGS: There is cardiomegaly. There is some venous congestion. There is diffuse airspace disease in the right lung. There is also left upper lobe infiltrate. There may be a small right pleural effusion. No pneumothorax. Mediastinum is unremarkable. IMPRESSION: Diffuse airspace disease in the right lung as well as a left upper lobe infiltrate suspect for pneumonia. Underlying central pulmonary venous congestion cannot be excluded. Also appears to be a small right pleural effusion. Dictated by: Dictated on workstation # [id number]
[2022-11-08] MEDS: ANIDULAFUNGIN INJECTION 100 MG in NS (IVPB) 100 ML IV SCH (09:04)
[2022-11-08] MEDS: ASPIRIN E.C. 81 MG (ECOTRIN) TAB PO SCH (09:05)
[2022-11-08] MEDS: PANTOPRAZOLE 40 MG (PROTONIX) TAB PO SCH (09:05)
[2022-11-08] MEDS: AMIODARONE 200 MG (CORDARONE) TAB PO SCH ×2 (09:05→21:14)
[2022-11-08] MEDS: ENOXAPARIN 100 MG/1 ML (LOVENOX) SYR SC SCH ×2 (09:22→21:14)
--- NOTE | 2022-11-08 10:27 | Progress Note ---
Subjective Subjective/Events-last exam Patient feeling better today. Desires to take shower. Tolerating PO diet and has been up to stool in room. States that he is feeling causious and tired but overall better. Review of Systems General: Fatigue Pulmonary: Dyspnea, Cough Cardiovascular: No: Chest Pain, Palpitations, Edema Gastrointestinal: No: Nausea, Vomiting, Abdominal Pain Neurological: Weakness, Incoordination; No: Confusion Objective Exam Last Set of Vital Signs Vital Signs Date Time Temp Pulse Resp B/P (MAP) Pulse Ox O2 Delivery O2 Flow Rate FiO2 11/08/22 09:00 75 28 123/80 (106) 90 High Flow N/C 3.00 11/08/22 08:00 36.1 Capillary Refill : Less Than 3 Seconds I&O Intake and Output 11/08/22 00:00 Intake Total 1750 ml Output Total 2300 ml Balance -550 ml Intake Oral 1400 ml IV Total 350 ml Output Urine Total 2300 ml # Voids 1 General: Alert, Oriented X3, No Acute Distress Lungs: Other (Diffuse crackles bilaterally, normal work of breathing, coughing with deep breathing) Heart: Regular Rate, No Murmurs Abdomen: Normal Bowel Sounds, Soft, No Tenderness, No Masses Extremities: No Edema, No Tenderness/Swelling Neuro: Normal Speech Results/Procedures Lab Laboratory Tests 11/07/22 17:40: 11/07/22 20:40: Vancomycin Level Trough 9.3L 11/08/22 04:04: White Blood Count 7.7, Red Blood Count 4.29L, Hemoglobin 14.1, Hematocrit 40, Mean Corpuscular Volume 93, Mean Corpuscular Hemoglobin 33, Mean Corpuscular Hemoglobin Concent 35, Red Cell Distribution Width 13.4, Platelet Count 221, Mean Platelet Volume 10.3, Immature Granulocyte % (Auto) 1, Neutrophils (%) (Auto) 67, Lymphocytes (%) (Auto) 24, Monocytes (%) (Auto) 5, Eosinophils (%) (Auto) 3, Basophils (%) (Auto) 0, Neutrophils # (Auto) 5.2, Lymphocytes # (Auto) 1.9, Monocytes # (Auto) 0.4, Eosinophils # (Auto) 0.2, Basophils # (Auto) 0.0, Immature Granulocyte # (Auto) 0.1, Sodium Level 134L, Potassium Level 3.8, Chloride Level 98, Carbon Dioxide Level 23, Anion Gap 13, Blood Urea Nitrogen 14, Creatinine 0.96, Estimat Glomerular Filtration Rate 94, BUN/Creatinine Ratio 15, Glucose Level 95, Calcium Level 8.3L, Corrected Calcium 9.5, Total Bilirubin 0.4, Aspartate Amino Transf (AST/SGOT) 86H, Alanine Aminotransferase (ALT/SGPT) 63H, Alkaline Phosphatase 48, Total Protein 5.4L, Albumin 2.5L Microbiology 11/05/22 Gram Stain - Final, Resulted 11/05/22 Sputum Culture - Preliminary, Resulted Usual upper respiratory magan 11/04/22 Blood Culture - Preliminary, Resulted No growth Radiology Date of Exam:11/07/22 CHEST 1 VIEW, AP/PA ONLY EXAMINATION: Chest 1 view HISTORY: Followup pneumonia. Shortness of breath. COMPARISON: 11/06/2022. FINDINGS: Increasing patchy and consolidative opacities are seen throughout the right hemithorax with increasing hazy opacities in the left hemithorax. Possible small right pleural effusion. No pneumothorax. Stable cardiac silhouette. IMPRESSION: 1. Worsening pneumonia involving both lungs. Possible small pleural effusion on the right. Dictated by: Dictated on workstation # [id number] Dict: 11/07/22 0754 Trans: 11/07/22 0811 CVB [id number] Interpreted by: ARLINE BANKS DO Assessment/Plan Assessment/Plan (1) Pneumonia Status: Acute Assessment & Plan: -Fever and possible infiltrate on CXR on admission. -WBC normal; however patient is immunosuppressed due to RA treatment -hypotension more likely secondary to arrhythmia vs sepsis -Initially treated with Rocephin and zithromax; increase antibiotic coverage 11/06 due to worsening infiltrate/fever/hypoxia- change to Zosyn, zithromax, vanco; add Eraxis for fungal coverage due to patient's immunosuppressed status - check legionella ag - blood cultures negative; sputum culture pending - CT chest - consolidation/ground-glass infiltrate c/w possible mix of pneumonia and pulm edema; mediastinal LAD likely reactive - recommend f/u CT w/ contrast in 6-8wk - added Lasix 11/07: - fever and wbc improved - CXR increased infiltrate throughout - O2 weaned to 3-4L; sats low 90's - continue current antibiotics; consider transfer to floor if continued improvement 11/08 - No fever in 48 hrs - CXR stable with mild pulmonary congestion, will continue lasix - Encouraged IS and titrate oxygen as tolerated, PT ordered, work on getting up to chair - Will transfer to floor today Qualifiers: Qualified Codes: J18.9 - Pneumonia, unspecified organism (2) Paroxysmal atrial flutter Status: Acute Assessment & Plan: Admitted to ICU 11/04 with A-flutter with RVR, Dr. Rae consulted for cardiology management. Treated w/ Cardizem drip, digoxin and amiodarone bolus given. Underwent electrical cardioversion on 11/04/22 Now on oral amiodarone and metoprolol. On Lovenox for clot prevention; will need po anticoagulation. CHADVASC Score 1 2D Echo 11/05 normal EF 50-55% 11/07: stable; rate/rhythm improved 11/08 - Cardiology consulted and managing (3) Chronic hyponatremia Status: Acute Assessment & Plan: suspect SIADH - given IVF in ED due to apparent hypovolemia and hypotension (from arrhythmia); Na increased to 129 from 126; goal increase is 4-6 in 24h - 11/05 Na 128 (down from 129); DC IVF and fluid restrict 1500mL - elevated Eve and UOsm c/w SIADH; uric acid <4 - am cortisol normal - Lasix given for suspected pulm edema - CT chest done 11/06 - worsening infiltrate with probable mix of edema; mediastinal LAD - likely reactive; recommend repeat CT chest w/ contrast in 6- 8wk for follow-up 11/07: Na 134 I/O 3217/3375; -157mL 90kg 11/08 - Na 134, continue fluid restriction (4) Elevated LFTs Status: Acute Assessment & Plan: 11/08: - Suspect shock liver from hypotension, will continue to monitor (5) Tobacco abuse Status: Chronic Assessment & Plan: 11/08: - Discussed the importance of cessation MARQUISE SOMMER MD November 08, 2022 10:27
--- NOTE | 2022-11-08 11:29 | Physical Therapy Evaluation ---
PT Evaluation-General Medical Diagnosis Admission Date November 04, 2022 at 13:27 Medical Diagnosis: pneumonia Onset Date: November 08, 2022 Therapy Diagnosis Therapy Diagnosis: debility Precautions Precautions/Isolations: Standard Precautions Referral Physician: Yash Reason for Referral: Evaluation/Treatment Social History Current Living Status: Spouse Prior Prior Level of Function SCALE: Activities may be completed with or without assistive devices. 0-Abuzudbqhr-giapgpk completes the activity by him/herself with no assistance from a helper. 5-Set-up or Clean-up Assistance-helper sets up or cleans up; patient completes activity. [place] assists only prior to or following the activity. 4-Supervision or Touching Assistance-helper provides verbal cues and/or touching/steadying and/or contact guard assistance as patient completes activity. Assistance may be provided throughout the activity or intermittently. 3-Partial/Moderate Assistance-helper does LESS THAN HALF the effort. [place] lifts, holds or supports trunk or limbs, but provides less than half the effort. 2-Substantial/Maximal Assistance-helper does MORE THAN HALF the effort. [place] lifts or holds trunk or limbs and provides more than half the effort. 2-Jyuxorxml-xjcfyh does ALL the effort. Patient does none of the effort to complete the activity. Or, the assistance of 2 or more helpers is required for the patient to complete the activity. If activity was not attempted, code reason: 7-Patient Refused. 9-Not Applicable-not attempted and the patient did not perform the activity before the current illness, exacerbation or injury. 10-Not Attempted due to Environmental Limitations-(lack of equipment, weather restraints, etc.). 88-Not Attempted due to Medical Conditions or Safety Concerns. Bed Mobility: 6 Transfers (B,C,W/C): 6 Gait: 6 Stairs: 6 Indoor Mobility (Ambulation): Independent Stairs: Independent PT Evaluation-Current Subjective States that he returned from a cruise and started back on his Methyltrexate and then started feeling ill. He was diagnosed with pneumonia and states that he is really weak. Pain Numeric Pain Scale: 0-No Pain Objective Patient Orientation: Person, Place, Time, Situation ROM/Strength Strength Lower Extremities 4+/5 Transfers Sit to Stand (QC): 5 Gait Does the Patient Walk?: Yes Mode of Locomotion: Walk Anticipated Mode of Locomotion: Walk Walk 10 feet (QC): 5 Walk 50 ft with 2 Turns(QC): 88 Walk 150 ft (QC): 88 Walking 10ft/uneven surface-QC: 88 Distance: 40' Gait Assistive Device: None Balance Sitting Static: Good Sitting Dynamic: Good Standing Static: Fair Standing Dynamic: Poor Assessment/Needs 52 y.o. male with severe debility and weakness. He should do well with skilled therapy. 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 Time Frame: November 15, 2022 Roll Left & Right (QC): 6 Sit to Lying (QC): 6 Lying-Sitting on Side/Bed(QC): 6 Sit to Stand (QC): 6 Chair/Nry-nn-Trgal Xfer(QC): 6 Toilet Transfer (QC): 6 Car Transfer (QC): 6 Does the Patient Walk: Yes Walk 10 feet (QC): 6 Walk 50ft with 2 Turns (QC): 6 Walk 150 ft (QC): 6 Walking 10ft on Uneven Surface: 6 1 Step (curb) (QC): 6 4 Steps (QC): 6 12 Steps (QC): 6 Picking up an Object (QC): 6 PT Plan Problem List Problem List: Activity Tolerance, Functional Strength, Safety, Balance, Gait, Transfer, Bed Mobility Treatment/Plan Treatment Plan: Continue Plan of Care Treatment Plan: Bed Mobility, Education, Functional Activity Luis, Functional Strength, Gait, Safety, Therapeutic Exercise, Transfers Treatment Duration: November 15, 2022 Frequency: 11 times per week Estimated Hrs Per Day: 1 hour per day Time Time In: 1100 Time Out: 1115 DATE: November 08, 2022 Total Billed Treatment Time: 15 Total Billed Treatment 1, EV low complexity x 15' SVEN SORIANO PT November 08, 2022 11:29
[2022-11-08 12:00] VITALS: BP 118/77
[2022-11-08] MEDS ORDERED: SALINE NASAL SPRAY (OCEAN) 45 ML BTL SCH (13:00)
[2022-11-08] MEDS ORDERED: SALINE NASAL SPRAY (OCEAN) 45 ML BTL PRN (14:45)
[2022-11-08] MEDS: AZITHROMYCIN INJECTION 500 MG in NS (IVPB) 250 ML IV SCH (15:03)
[2022-11-08] MEDS: RT-ALBUTEROL/IPRATROPIUM 3 ML (DUONEB) VIAL INH SCH ×2 (15:04→22:10)
--- NOTE | 2022-11-08 15:16 | Progress Note - Cardiology ---
Cardiology SOAP Progress Note Subjective: No cp or palp or syncope No shortness of breath at rest No n/v/d Gen weakness No focal weakness Objective: I&O/Vital Signs 11/08/22 11/08/22 11/08/22 11/08/22 04:00 04:00 04:00 05:00 Temp 36.8 Pulse 68 69 Resp 27 26 B/P (MAP) 105/73 (84) 113/75 (88) Pulse Ox 93 91 90 O2 Delivery High Flow N/C High Flow N/C High Flow N/C O2 Flow Rate 4.00 3.00 3.00 11/08/22 11/08/22 11/08/22 11/08/22 06:00 07:00 07:00 08:00 Temp 36.1 Pulse 67 72 70 Resp 25 28 B/P (MAP) 114/77 (89) 122/79 (96) Pulse Ox 92 91 O2 Delivery High Flow N/C High Flow N/C O2 Flow Rate 3.00 3.00 11/08/22 11/08/22 11/08/22 11/08/22 08:00 08:00 09:00 12:00 Temp 37.4 Pulse 73 75 Resp 27 28 B/P (MAP) 119/83 (96) 123/80 (106) Pulse Ox 92 90 90 O2 Delivery Nasal Cannula High Flow N/C High Flow N/C O2 Flow Rate 4.00 3.00 3.00 11/08/22 11/08/22 11/08/22 11/08/22 12:00 12:40 12:41 12:45 Temp 37.4 Pulse 74 70 Resp 18 B/P (MAP) 118/77 (91) Pulse Ox 92 79 98 O2 Delivery High Flow N/C High Flow N/C High Flow N/C O2 Flow Rate 4.00 6.00 3.00 11/08/22 11/08/22 12:45 12:46 Pulse 68 Pulse Ox 79 O2 Delivery High Flow N/C O2 Flow Rate 2.00 11/07/22 23:59 Intake Total 1400 ml Output Total 975 ml Balance 425 ml Constitutional: AAO x 3, well-developed, well-nourished Respiratory: No accessory muscle use; chest expansion is symmetric, chest is bilaterally symmetric, other (good, bilat air entry) Cardiovascular: regular rate-rhythm, S1 and S2, systolic murmur (soft SIMON at card base) Gastrointestional: No tender; soft; No guarding, No rebound; audible bowel sounds Extremities: No clubbing, No cyanosis, No significant edema Neurologic/Psychiatric: oriented x 3, other (moves all limbs) Skin: normal color, warm/dry; No cyanosis, No rash on exposed areas, No ulcerations on exposed areas Results/Procedures: Labs Laboratory Tests 11/07/22 17:40: 11/07/22 20:40: Vancomycin Level Trough 9.3L 11/08/22 04:04: White Blood Count 7.7, Red Blood Count 4.29L, Hemoglobin 14.1, Hematocrit 40, Mean Corpuscular Volume 93, Mean Corpuscular Hemoglobin 33, Mean Corpuscular Hemoglobin Concent 35, Red Cell Distribution Width 13.4, Platelet Count 221, Mean Platelet Volume 10.3, Immature Granulocyte % (Auto) 1, Neutrophils (%) (Auto) 67, Lymphocytes (%) (Auto) 24, Monocytes (%) (Auto) 5, Eosinophils (%) (Auto) 3, Basophils (%) (Auto) 0, Neutrophils # (Auto) 5.2, Lymphocytes # (Auto) 1.9, Monocytes # (Auto) 0.4, Eosinophils # (Auto) 0.2, Basophils # (Auto) 0.0, Immature Granulocyte # (Auto) 0.1, Sodium Level 134L, Potassium Level 3.8, Chloride Level 98, Carbon Dioxide Level 23, Anion Gap 13, Blood Urea Nitrogen 14, Creatinine 0.96, Estimat Glomerular Filtration Rate 94, BUN/Creatinine Ratio 15, Glucose Level 95, Calcium Level 8.3L, Corrected Calcium 9.5, Total Bilirubin 0.4, Aspartate Amino Transf (AST/SGOT) 86H, Alanine Aminotransferase (ALT/SGPT) 63H, Alkaline Phosphatase 48, Total Protein 5.4L, Albumin 2.5L Microbiology 11/05/22 Gram Stain - Final, Complete 11/05/22 Sputum Culture - Final, Complete Usual upper respiratory magan YEAST 11/04/22 Blood Culture - Preliminary, Resulted No growth Laboratory Tests 11/07/22 04:22 11/08/22 04:04 A/P: Assessment: Paroxysmal atrial flutter - Treated with electrical cardioversion on November 04, 2022. Subsequently on amio - 2D echo done on November 05, 2022 with normal LV size, EF 50 to 55%, mild mitral regurgitation, PA pressure 20 to 25 mmHg - anticoag for stroke prophylaxis (currently on enoxaparin) Pneumonia and sepsis - Med svce managing Hypotension has resolved Plan: * I interviewed and examined the patient and reviewed his records * Continue current cardiac regimen * Monitor labs MEG JOYCE MD [facility] November 08, 2022 15:16
[2022-11-08 16:15] VITALS: BP 116/73
[2022-11-08] MEDS: IBUPROFEN 600 MG (MOTRIN) TAB PO PRN (16:25)
[2022-11-08] MEDS ORDERED: RT-ALBUTEROL/IPRATROPIUM 3 ML (DUONEB) VIAL INH PRN (17:00)
[2022-11-08 20:04] VITALS: BP 120/80
[2022-11-08] MEDS: guaiFENesin/CODEINE (ROBITUSSIN AC) 10ML UDC PO PRN (23:50)
[2022-11-09] VITALS (7 sets, daily range): BP systolic 116–136; BP diastolic 73–87
[2022-11-09] MEDS: RT-ALBUTEROL/IPRATROPIUM 3 ML (DUONEB) VIAL INH SCH ×4 (02:29→21:33)
[2022-11-09 05:42] LABS: BASOPHILS # (AUTO) 0.1 10^3/uL (0.0-0.1); BASOPHILS % (AUTO) 1 % (0-10); EOSINOPHILS # (AUTO) 0.3 10^3/uL (0.0-0.3); EOSINOPHILS % (AUTO) 5 % (0-10); HEMATOCRIT 39 % (40-54); HEMOGLOBIN 13.6 g/dL (13.3-17.7); LYMPHOCYTES # (AUTO) 1.8 10^3/uL (1.0-4.0); LYMPHOCYTES % (AUTO) 28 % (12-44); MEAN CORPUSCULAR HEMOGLOBIN 33 pg (25-34); MEAN CORPUSCULAR HGB CONC 35 g/dL (32-36); MEAN CORPUSCULAR VOLUME 93 fL (80-99); MEAN PLATELET VOLUME 9.8 fL (9.0-12.2); MONOCYTES # (AUTO) 0.4 10^3/uL (0.0-1.0); MONOCYTES % (AUTO) 5 % (0-12); NEUTROPHILS # (AUTO) 3.9 10^3/uL (1.8-7.8); NEUTROPHILS % (AUTO) 60 % (42-75); PLATELET COUNT 255 10^3/uL (130-400); WHITE BLOOD COUNT 6.5 10^3/uL (4.3-11.0)
[2022-11-09 05:57] LABS: ALBUMIN 2.5 GM/DL (3.2-4.5); BILIRUBIN,TOTAL 0.4 MG/DL (0.1-1.0); CREATININE SERUM 0.8 MG/DL (0.60-1.30); POTASSIUM 3.6 MMOL/L (3.6-5.0); TOTAL PROTEIN 5.9 GM/DL (6.4-8.2)
[2022-11-09] MEDS: PIPERACILLIN SODIUM/TAZOBACTAM 4.5 GM in NS (IVPB) 100 ML IV SCH ×3 (06:02→23:29)
[2022-11-09] MEDS: ANIDULAFUNGIN INJECTION 100 MG in NS (IVPB) 100 ML IV SCH (09:01)
[2022-11-09] MEDS: ASPIRIN E.C. 81 MG (ECOTRIN) TAB PO SCH (09:01)
[2022-11-09] MEDS: AMIODARONE 200 MG (CORDARONE) TAB PO SCH ×2 (09:01→20:41)
[2022-11-09] MEDS: PANTOPRAZOLE 40 MG (PROTONIX) TAB PO SCH (09:01)
[2022-11-09] MEDS: ENOXAPARIN 100 MG/1 ML (LOVENOX) SYR SC SCH ×2 (09:01→20:43)
[2022-11-09] MEDS: AZITHROMYCIN INJECTION 500 MG in NS (IVPB) 250 ML IV SCH (15:09)
[2022-11-09] MEDS: ACETAMINOPHEN 500 MG TAB (TYLENOL) PO PRN (15:16)
--- NOTE | 2022-11-09 16:36 | Progress Note - Cardiology ---
Cardiology SOAP Progress Note Subjective: No cp or palp or syncope or shortness of breath at rest No n/v/d No focal weakness Some gen weakness and malaise present Objective: I&O/Vital Signs 11/09/22 11/09/22 11/09/22 11/09/22 08:00 08:28 08:34 09:30 Temp 36.5 Pulse 72 63 Resp 19 B/P (MAP) 136/87 (103) Pulse Ox 91 91 O2 Delivery Nasal Cannula Nasal Cannula Nasal Cannula O2 Flow Rate 3.00 3.00 3.00 11/09/22 11/09/22 11/09/22 11/09/22 12:18 14:00 15:03 16:10 Temp 37.0 36.8 Pulse 74 71 83 Resp 18 18 B/P (MAP) 116/73 (87) 122/77 (92) Pulse Ox 95 91 97 O2 Delivery High Flow N/C Nasal Cannula Nasal Cannula O2 Flow Rate 3.00 3.00 3.00 11/09/22 00:00 Intake Total 920 ml Output Total 450 ml Balance 470 ml Constitutional: AAO x 3, well-developed, well-nourished Respiratory: No accessory muscle use; chest expansion is symmetric, chest is bilaterally symmetric, other (good, bilat air entry) Cardiovascular: regular rate-rhythm, S1 and S2, systolic murmur (soft SIMON at card base) Gastrointestional: No tender; soft; No guarding, No rebound; audible bowel sounds Extremities: No clubbing, No cyanosis, No significant edema Neurologic/Psychiatric: oriented x 3, other (moves all limbs) Skin: normal color, warm/dry; No cyanosis, No rash on exposed areas, No ulcerations on exposed areas Results/Procedures: Labs Laboratory Tests 11/09/22 05:28: White Blood Count 6.5, Red Blood Count 4.16L, Hemoglobin 13.6, Hematocrit 39L, Mean Corpuscular Volume 93, Mean Corpuscular Hemoglobin 33, Mean Corpuscular Hemoglobin Concent 35, Red Cell Distribution Width 13.2, Platelet Count 255, Mean Platelet Volume 9.8, Immature Granulocyte % (Auto) 1, Neutrophils (%) (Auto) 60, Lymphocytes (%) (Auto) 28, Monocytes (%) (Auto) 5, Eosinophils (%) (Auto) 5, Basophils (%) (Auto) 1, Neutrophils # (Auto) 3.9, Lymphocytes # (Auto) 1.8, Monocytes # (Auto) 0.4, Eosinophils # (Auto) 0.3, Basophils # (Auto) 0.1, Immature Granulocyte # (Auto) 0.1, Sodium Level 136, Potassium Level 3.6, Chloride Level 102, Carbon Dioxide Level 25, Anion Gap 9, Blood Urea Nitrogen 11, Creatinine 0.80, Estimat Glomerular Filtration Rate 105, BUN/Creatinine Ratio 14, Glucose Level 96, Calcium Level 8.0L, Corrected Calcium 9.2, Total Bilirubin 0.4, Aspartate Amino Transf (AST/SGOT) 78H, Alanine Aminotransferase (ALT/SGPT) 70H, Alkaline Phosphatase 45, Total Protein 5.9L, Albumin 2.5L Microbiology 11/05/22 Gram Stain - Final, Complete 11/05/22 Sputum Culture - Final, Complete Usual upper respiratory magan YEAST 11/04/22 Blood Culture - Preliminary, Resulted No growth A/P: Assessment: Paroxysmal atrial flutter - Treated with electrical cardioversion on November 04, 2022. Subsequently on amio - 2D echo done on November 05, 2022 with normal LV size, EF 50 to 55%, mild mitral regurgitation, PA pressure 20 to 25 mmHg - anticoag for stroke prophylaxis (currently on enoxaparin) Pneumonia and sepsis - Med svce managing Hypotension has resolved Plan: * Continue current cardiac regimen * Monitor labs MEG JOYCE MD FACP [facility] November 09, 2022 16:36
--- NOTE | 2022-11-09 19:08 | Progress Note ---
Subjective Subjective/Events-last exam Patient feeling much better this AM. States that he has been up and walking. Showered yesterday. Tolerating PO diet. Having loose stools. Review of Systems General: Fatigue Pulmonary: Cough Cardiovascular: No: Chest Pain, Palpitations, Edema Neurological: Weakness Objective Exam Last Set of Vital Signs Vital Signs Date Time Temp Pulse Resp B/P (MAP) Pulse Ox O2 Delivery O2 Flow Rate FiO2 11/09/22 16:10 36.8 83 18 122/77 (92) 97 Nasal Cannula 3.00 Capillary Refill : Less Than 3 Seconds I&O Intake and Output 11/09/22 00:00 Intake Total 1320 ml Output Total 1100 ml Balance 220 ml Intake Oral 1220 ml IV Total 100 ml Output Urine Total 1100 ml # Voids 1 # Bowel Movements 2 General: Alert, Oriented X3, No Acute Distress Lungs: Other (Basilar wheezing, normal work of breathing, coughing with deep breathing) Heart: Regular Rate, No Murmurs Abdomen: Soft, No Tenderness Extremities: No Edema, No Tenderness/Swelling Neuro: Normal Speech Results/Procedures Lab Laboratory Tests 11/09/22 05:28: White Blood Count 6.5, Red Blood Count 4.16L, Hemoglobin 13.6, Hematocrit 39L, Mean Corpuscular Volume 93, Mean Corpuscular Hemoglobin 33, Mean Corpuscular Hemoglobin Concent 35, Red Cell Distribution Width 13.2, Platelet Count 255, Mean Platelet Volume 9.8, Immature Granulocyte % (Auto) 1, Neutrophils (%) (Auto) 60, Lymphocytes (%) (Auto) 28, Monocytes (%) (Auto) 5, Eosinophils (%) (Auto) 5, Basophils (%) (Auto) 1, Neutrophils # (Auto) 3.9, Lymphocytes # (Auto) 1.8, Monocytes # (Auto) 0.4, Eosinophils # (Auto) 0.3, Basophils # (Auto) 0.1, Immature Granulocyte # (Auto) 0.1, Sodium Level 136, Potassium Level 3.6, Chloride Level 102, Carbon Dioxide Level 25, Anion Gap 9, Blood Urea Nitrogen 11, Creatinine 0.80, Estimat Glomerular Filtration Rate 105, BUN/Creatinine Ratio 14, Glucose Level 96, Calcium Level 8.0L, Corrected Calcium 9.2, Total Bilirubin 0.4, Aspartate Amino Transf (AST/SGOT) 78H, Alanine Aminotransferase (ALT/SGPT) 70H, Alkaline Phosphatase 45, Total Protein 5.9L, Albumin 2.5L Microbiology 11/05/22 Gram Stain - Final, Complete 11/05/22 Sputum Culture - Final, Complete Usual upper respiratory magan YEAST 11/04/22 Blood Culture - Final, Complete No growth Radiology Date of Exam:11/07/22 CHEST 1 VIEW, AP/PA ONLY EXAMINATION: Chest 1 view HISTORY: Followup pneumonia. Shortness of breath. COMPARISON: 11/06/2022. FINDINGS: Increasing patchy and consolidative opacities are seen throughout the right hemithorax with increasing hazy opacities in the left hemithorax. Possible small right pleural effusion. No pneumothorax. Stable cardiac silhouette. IMPRESSION: 1. Worsening pneumonia involving both lungs. Possible small pleural effusion on the right. Dictated by: Dictated on workstation # [id number] Dict: 11/07/22 0754 Trans: 11/07/22 0811 [facility] [id number] Interpreted by: ARLINE BANKS DO Assessment/Plan Assessment/Plan (1) Pneumonia Status: Acute Assessment & Plan: -Fever and possible infiltrate on CXR on admission. -WBC normal; however patient is immunosuppressed due to RA treatment -hypotension more likely secondary to arrhythmia vs sepsis -Initially treated with Rocephin and zithromax; increase antibiotic coverage 11/06 due to worsening infiltrate/fever/hypoxia- change to Zosyn, zithromax, vanco; add Eraxis for fungal coverage due to patient's immunosuppressed status - check legionella ag - blood cultures negative; sputum culture pending - CT chest - consolidation/ground-glass infiltrate c/w possible mix of pneumonia and pulm edema; mediastinal LAD likely reactive - recommend f/u CT w/ contrast in 6-8wk - added Lasix 11/07: - fever and wbc improved - CXR increased infiltrate throughout - O2 weaned to 3-4L; sats low 90's - continue current antibiotics; consider transfer to floor if continued improvement 11/08 - No fever in 48 hrs - CXR stable with mild pulmonary congestion, will continue lasix - Encouraged IS and titrate oxygen as tolerated, PT ordered, work on getting up to chair - Will transfer to floor today 11/09 - Sputum culture growing yeast - Continue to work on getting up and ambulating, will continue zosyn and Eraxis - CXR in AM Qualifiers: Qualified Codes: J18.9 - Pneumonia, unspecified organism (2) Paroxysmal atrial flutter Status: Acute Assessment & Plan: Admitted to ICU 11/04 with A-flutter with RVR, Dr. Rae consulted for cardiology management. Treated w/ Cardizem drip, digoxin and amiodarone bolus given. Underwent electrical cardioversion on 11/04/22 Now on oral amiodarone and metoprolol. On Lovenox for clot prevention; will need po anticoagulation. CHADVASC Score 1 2D Echo 11/05 normal EF 50-55% 11/07: stable; rate/rhythm improved 11/08 - Cardiology consulted and managing (3) Chronic hyponatremia Status: Acute Assessment & Plan: suspect SIADH - given IVF in ED due to apparent hypovolemia and hypotension (from arrhythmia); Na increased to 129 from 126; goal increase is 4-6 in 24h - 11/05 Na 128 (down from 129); DC IVF and fluid restrict 1500mL - elevated Eve and UOsm c/w SIADH; uric acid <4 - am cortisol normal - Lasix given for suspected pulm edema - CT chest done 11/06 - worsening infiltrate with probable mix of edema; mediastinal LAD - likely reactive; recommend repeat CT chest w/ contrast in 6- 8wk for follow-up 11/07: Na 134 I/O 3217/3375; -157mL 90kg 11/08 - Na 134, continue fluid restriction 11/09 - Na improved today 136, will stop fluid restriction and continue to monitor (4) Elevated LFTs Status: Acute Assessment & Plan: 11/08: - Suspect shock liver from hypotension, will continue to monitor 11/09 - Stable, will continue to monitor (5) Tobacco abuse Status: Chronic Assessment & Plan: 11/08: - Discussed the importance of cessation MARQUISE SOMMER MD November 09, 2022 19:08
[2022-11-10] MEDS: RT-ALBUTEROL/IPRATROPIUM 3 ML (DUONEB) VIAL INH SCH ×3 (02:29→14:53)
[2022-11-10 04:34] LABS: BASOPHILS % (AUTO) 1 % (0-10); EOSINOPHILS # (AUTO) 0.3 10^3/uL (0.0-0.3); EOSINOPHILS % (AUTO) 5 % (0-10); HEMATOCRIT 37 % (40-54); HEMOGLOBIN 13.4 g/dL (13.3-17.7); LYMPHOCYTES # (AUTO) 1.7 10^3/uL (1.0-4.0); LYMPHOCYTES % (AUTO) 27 % (12-44); MEAN CORPUSCULAR HEMOGLOBIN 33 pg (25-34); MEAN CORPUSCULAR HGB CONC 36 g/dL (32-36); MEAN CORPUSCULAR VOLUME 93 fL (80-99); MEAN PLATELET VOLUME 9.9 fL (9.0-12.2); MONOCYTES # (AUTO) 0.5 10^3/uL (0.0-1.0); MONOCYTES % (AUTO) 7 % (0-12); NEUTROPHILS # (AUTO) 3.8 10^3/uL (1.8-7.8); NEUTROPHILS % (AUTO) 60 % (42-75); PLATELET COUNT 309 10^3/uL (130-400); WHITE BLOOD COUNT 6.4 10^3/uL (4.3-11.0)
[2022-11-10 05:00] LABS: ALBUMIN 2.5 GM/DL (3.2-4.5); BILIRUBIN,TOTAL 0.6 MG/DL (0.1-1.0); CALCIUM 7.9 MG/DL (8.5-10.1); CREATININE SERUM 0.77 MG/DL (0.60-1.30); POTASSIUM 3.6 MMOL/L (3.6-5.0); TOTAL PROTEIN 6.1 GM/DL (6.4-8.2)
[2022-11-10] MEDS: PIPERACILLIN SODIUM/TAZOBACTAM 4.5 GM in NS (IVPB) 100 ML IV SCH ×2 (06:24→14:56)
--- NOTE | 2022-11-10 08:07 | Diagnostic Imaging Report ---
EXAMINATION: Chest 1 view HISTORY: Pneumonia COMPARISON: 11/08/2022 FINDINGS: Airspace opacities in the right lung have improved and are now mild to moderate. There is a small right effusion. No pneumothorax. Heart size is normal. IMPRESSION: 1. Improving right-sided airspace opacities and small right effusion in keeping with pneumonia. Dictated by: Dictated on workstation # [id number]
[2022-11-10 08:32] VITALS: BP 146/90
[2022-11-10] MEDS: ENOXAPARIN 100 MG/1 ML (LOVENOX) SYR SC SCH (09:01)
[2022-11-10] MEDS: PANTOPRAZOLE 40 MG (PROTONIX) TAB PO SCH (09:01)
[2022-11-10] MEDS: ASPIRIN E.C. 81 MG (ECOTRIN) TAB PO SCH (09:03)
[2022-11-10] MEDS: AMIODARONE 200 MG (CORDARONE) TAB PO SCH (09:03)
[2022-11-10] MEDS: ANIDULAFUNGIN INJECTION 100 MG in NS (IVPB) 100 ML IV SCH (09:03)
--- NOTE | 2022-11-10 10:49 | Physical Therapy Progress Note ---
Therapy Progress Note Patient up independently without difficulty. RN confirms. PT to dismiss patient from services at this time. Nursing to have patient ambulate in hallway PRN. DEXTER AGUILERA PT November 10, 2022 10:49
--- NOTE | 2022-11-10 10:52 | Cardiology Progress Note ---
Subjective Date Seen by Provider: November 10, 2022 Time Seen by Provider: 09:00 Subjective/Events-last exam Patient sitting up in bed, no new complaints. Objective-Cardiology Exam Last Set of Vital Signs Vital Signs 11/10/22 11/10/22 08:32 09:42 Temp 36.7 Pulse 64 Resp 18 B/P (MAP) 146/90 (108) Pulse Ox 95 O2 Delivery Nasal Cannula O2 Flow Rate 2.00 I&O Intake and Output 11/10/22 00:00 Intake Total 1740 ml Output Total 2000 ml Balance -260 ml Intake Oral 1740 ml Output Urine Total 2000 ml # Voids 2 # Bowel Movements 2 General: Alert, Oriented X3, No Acute Distress HEENT: Atraumatic, PERRLA Neck: Supple, No JVD, No Thyromegaly Lungs: Other (Basilar wheezing, normal work of breathing, coughing with deep breathing) Heart: Regular Rate, No Murmurs Abdomen: Soft, No Tenderness Extremities: No Edema, No Tenderness/Swelling Skin: No Rashes Neuro: Normal Speech Psych/Mental Status: Mental Status NL, Mood NL Results Lab Laboratory Tests 11/10/22 04:17 A/P-Cardiology Admission Diagnosis Atrial flutter Tachycardia Hypotension Fever Assessment/Plan Paroxysmal atrial flutter, has been having multiple episodes. Underwent electrical cardioversion on November 04, 2022 Responded well to the amiodarone bolus and a drip I will change amiodarone to 200 mg twice daily and monitor tolerance and response 2D echo done on November 05, 2022 with normal LV size, EF 50 to 55%, mild mitral regurgitation, PA pressure 20 to 25 mmHg Pneumonia, receiving antibiotic. Chest x-ray appeared to be showing evolving pneumonia. Has been having episodes of tachycardia. Underwent cardioversion on November 04, 2022. Sepsis, Fever has been improving Blood pressure is more stable Continue to monitor CHADVASC score 1, for now he will require oral anticoagulation Palpitation, secondary to atrial flutter. Better at this time, monitor Hypotension, probably secondary to tachycardia. Blood pressure is more stable. Continue to monitor Supervisory-Addendum Brief Supervisory Addendum Participated in pt care: history, MDM, physical Personally performed: exam, history, MDM Care discussed with: JOSEF Results interpretation: Verified all documentation Notes: Patient was seen and evaluated with Kieran, examination performed, management plan was discussed, agree with the current scribed note, I made few changes to the note using Italic font Patient was seen at bedside, sitting comfortably, feeling better and reporting improvement Maintaining sinus rhythm I will change amiodarone to 200 mg twice daily and monitor tolerance and response Continue on oral anticoagulation KIERAN DAWSON November 10, 2022 10:52 ALTAGRACIA LOZANO MD November 10, 2022 11:36
[2022-11-10 12:46] VITALS: BP 130/77
--- NOTE | 2022-11-10 15:47 | Discharge Summary ---
Diagnosis/Chief Complaint Date of Admission November 04, 2022 at 13:27 Date of Discharge Discharge Diagnosis Problems/Diagnosis: (1) Pneumonia Assessment & Plan: -Fever and possible infiltrate on CXR on admission. -WBC normal; however patient is immunosuppressed due to RA treatment -hypotension more likely secondary to arrhythmia vs sepsis -Initially treated with Rocephin and zithromax; increase antibiotic coverage 11/06 due to worsening infiltrate/fever/hypoxia- change to Zosyn, zithromax, vanco; add Eraxis for fungal coverage due to patient's immunosuppressed status - check legionella ag - blood cultures negative; sputum culture pending - CT chest - consolidation/ground-glass infiltrate c/w possible mix of pneumonia and pulm edema; mediastinal LAD likely reactive - recommend f/u CT w/ contrast in 6-8wk - added Lasix 11/07: - fever and wbc improved - CXR increased infiltrate throughout - O2 weaned to 3-4L; sats low 90's - continue current antibiotics; consider transfer to floor if continued improvement 11/08 - No fever in 48 hrs - CXR stable with mild pulmonary congestion, will continue lasix - Encouraged IS and titrate oxygen as tolerated, PT ordered, work on getting up to chair - Will transfer to floor today 11/09 - Sputum culture growing yeast - Continue to work on getting up and ambulating, will continue zosyn and Eraxis - CXR in AM Qualifiers: Qualified Codes: J18.9 - Pneumonia, unspecified organism Status: Acute (2) Paroxysmal atrial flutter Assessment & Plan: Admitted to ICU 11/04 with A-flutter with RVR, Dr. Rae consulted for cardiology management. Treated w/ Cardizem drip, digoxin and amiodarone bolus given. Underwent electrical cardioversion on 11/04/22 Now on oral amiodarone and metoprolol. On Lovenox for clot prevention; will need po anticoagulation. CHADVASC Score 1 2D Echo 11/05 normal EF 50-55% 11/07: stable; rate/rhythm improved 11/08 - Cardiology consulted and managing Status: Acute (3) Chronic hyponatremia Assessment & Plan: suspect SIADH - given IVF in ED due to apparent hypovolemia and hypotension (from arrhythmia); Na increased to 129 from 126; goal increase is 4-6 in 24h - 5/3 Na 128 (down from 129); DC IVF and fluid restrict 1500mL - elevated Eve and UOsm c/w SIADH; uric acid <4 - am cortisol normal - Lasix given for suspected pulm edema - CT chest done 11/06 - worsening infiltrate with probable mix of edema; mediastinal LAD - likely reactive; recommend repeat CT chest w/ contrast in 6- 8wk for follow-up 11/07: Na 134 I/O 3217/3375; -157mL 90kg 11/08 - Na 134, continue fluid restriction 11/09 - Na improved today 136, will stop fluid restriction and continue to monitor Status: Acute (4) Elevated LFTs Assessment & Plan: 11/08: - Suspect shock liver from hypotension, will continue to monitor 11/09 - Stable, will continue to monitor Status: Acute (5) Tobacco abuse Assessment & Plan: 11/08: - Discussed the importance of cessation Status: Chronic Chief Complaint/HPI Chief Complaint/HPI This is a 52 yo male who had onset of febrile illness over the weekend. He and his had returned from a cruise to the [facility] about 1 week prior to onset of illness. His developed similar symptoms over the weekend including fever, body aches, fatigue and cough. Denies n/v or diarrhea. Over the weekend patient developed near syncope and had to lower himself to the floor while almost passing out. He was seen by his PCP, Dr. Ram at [facility] in [place] on Thursday and found to be in SVT. He was sent to [facility] and received 2 dose of adenosine by EMS. Eventually he required cardioversion and converted to NSR and was discharged to home. Overnight he spiked a fever to 103 and re-developed an arrhythmia and subsequently returned to the ED and found to be in a-flutter with RVR. He reports significant coughing overnight. Patient has a history of 1 prior episode of SVT several years ago. Patient has a history of chronic hyponatremia, etiology has not been determined. Typically Na runs approx 130. Noted to be 126 in ED a previous visit. Not on thiazide diuretic, does not excessive consume alcohol. No hx of CHF or cirrhosis. Patient has hx of RA for which he has been well maintained on methotrexate. Discharge Summary-Simple/Stand Consultations Dr. Rae Discharge Physical Examination Allergies: Coded Allergies: No Known Drug Allergies (Unverified , 11/03/22) Vitals & I&Os Vital Sign - Last 12Hours Date Time Temp Pulse Resp B/P (MAP) Pulse Ox O2 Delivery O2 Flow Rate FiO2 11/10/22 14:53 92 Nasal Cannula 2.00 11/10/22 13:30 61 11/10/22 12:46 36.8 18 130/77 (94) Intake and Output 11/10/22 00:00 Intake Total 1640 ml Output Total 1500 ml Balance 140 ml Hospital Course See final discharge diagnosis. Radiology Reviewed Date of Exam:11/07/22 CHEST 1 VIEW, AP/PA ONLY EXAMINATION: Chest 1 view HISTORY: Followup pneumonia. Shortness of breath. COMPARISON: 11/06/2022. FINDINGS: Increasing patchy and consolidative opacities are seen throughout the right hemithorax with increasing hazy opacities in the left hemithorax. Possible small right pleural effusion. No pneumothorax. Stable cardiac silhouette. IMPRESSION: 1. Worsening pneumonia involving both lungs. Possible small pleural effusion on the right. Dictated by: Dictated on workstation # [id number] Dict: 11/07/22 0754 Trans: 11/07/[address] [facility] [id number] Interpreted by: ARLINE BANKS DO Discharge Instructions to patient/family Please see electronic discharge instructions given to patient. Discharge Medications Reviewed and agree with Discharge Medication list on patient's Discharge Instruction sheet MARQUISE SOMMER MD November 10, 2022 15:47
[2022-11-10] MEDS ORDERED: CEFD300C3 PO (15:50)
[2022-11-10] MEDS ORDERED: AMIO200T65 PO (15:50)
[2022-11-10] MEDS ORDERED: MTP25TSR PO (15:50)
[2022-11-10] MEDS ORDERED: RIVA20TA2 PO (15:50)
[2022-11-10] MEDS ORDERED: ASPI-1238 PO (15:50)
--- NOTE | 2022-11-10 15:51 | Discharge Summary ---
Discharge [facility] Reconcile Patient Problems Problems Reviewed?: Yes Discharge Medications New, Converted or Re-Newed RX: Transmitted to Pharmacy New Medications: Cefdinir (Cefdinir) 300 Mg Capsule 300 MG PO BID for 5 Days, #10 CAP Amiodarone HCl (Amiodarone HCl) 200 Mg Tablet 200 MG PO BID, #60 TAB Aspirin (Aspirin EC) 81 Mg Tablet.dr 81 MG PO DAILY, #30 TAB Metoprolol Succinate (Metoprolol Succinate) 25 Mg Tab.er.24h 25 MG PO DAILY, #30 TAB Rivaroxaban (Xarelto Tablet) 20 Mg Tablet 20 MG PO DAILY@1700, #30 TAB Continued Medications: Folic Acid (Folic Acid) 1 Mg Tablet 1 MG PO DAILY, TAB Meloxicam (Meloxicam) 15 Mg Tablet 15 MG PO DAILY, TAB Methotrexate Sodium (Methotrexate) 2.5 Mg Tablet 12.5 MG PO BID ON , TAB TAKES 5 (2.5MG) TABS TWICE DAILY ON THURSDAY Multivit-Min/Folic/Vit K/Lycop (Men's 50 Plus Multivitamin Tab) 400 Mcg-20 Mcg- 370 Mcg Tablet 1 EACH PO DAILY, TAB Patient Instructions Goal/Follow Up Appt: [address] Ram Activity & Diet Discharge Diet: No Restrictions Activity as Tolerated: Yes MARQUISE SOMMER MD November 10, 2022 15:51
[2022-11-10] MEDS ORDERED: AZITHROMYCIN 250 MG TAB (ZITHROMAX) PO SCH (16:00)
[2022-11-10 16:15] VITALS: BP 123/81
[2022-11-10] MEDS ORDERED: RIVAROXABAN 20 MG TABLET (XARELTO) PO SCH (17:00)
[2022-11-10] MEDS ORDERED: AMIODARONE 200 MG (CORDARONE) TAB PO SCH (21:00)
== END 2022-11-10 17:50 | disposition home or self-care (01) | DRG 871 ==
LOC: ER 10:32 → EDUNIT# 12:05 → ICU 13:27 → 4TH 11-08 11:14
PROVIDERS: ADMIT Family Medicine; ATTEND Family Medicine
PROC: 5A2204Z Restoration of Cardiac Rhythm, Single (ICD-10-PCS; principal; 2022-11-04)
DX: A41.9 Sepsis, unspecified organism (principal); J18.9 Pneumonia, unspecified organism; I48.92 Unspecified atrial flutter; E87.1 Hypo-osmolality and hyponatremia; Z79.01 Long term (current) use of anticoagulants; I48.91 Unspecified atrial fibrillation; Z20.822 Contact with and (suspected) exposure to COVID-19; R09.02 Hypoxemia; I95.9 Hypotension, unspecified; F17.210 Nicotine dependence, cigarettes, uncomplicated; M06.9 Rheumatoid arthritis, unspecified; I34.0 Nonrheumatic mitral (valve) insufficiency; Z79.82 Long term (current) use of aspirin; Z79.899 Other long term (current) drug therapy
CPT/HCPCS: 36415; 71045; 71250; 80048; 80053; 80202; 81000; 82533; 82550; 83735; 83874; 83935; 84100; 84295; 84300; 84439; 84443; 84484; 84550; 85007; 85025; 85027; 85652; 86141; 86713; 87040; 87070; 87205; 87449; 87636; 93005; 93306; 94640; 94664; 94760; 94761

== ENCOUNTER → 2023-02-23 | Outpatient (CLI) | payer BC ==
[~2023-02-23] VITALS: Ht 177 cm; Wt 91.0 kg
[~2023-02-23] MED LIST: AMIO200T65 PO; ASPI-1238 PO; CATHETER FLUSH 10 ML SYR IVP PRN; CEFD300C3 PO; FOLI1TAB33 PO; MELO15TA39 PO; METH2.5T PO; MTP25TSR PO; MULT-1104 PO; RIVA20TA2 PO
[2023-02-23 09:12] VITALS: BP 149/103
--- NOTE | 2023-02-23 12:32 | Cardiology Stress Test Report ---
Stress Test Report Date of Procedure/Referring: Date of Procedure: Feb 23, 2023 [facility] Admitting Physician Admitting Physician: Attending Physician: Altagracia Rae MD Baseline Heart Rate: 70 Baseline Blood Pressure: Blood Pressure Systolic: 149 Blood Pressure Diastolic: 103 Vital Signs Date Time Temp Pulse Resp B/P (MAP) Pulse Ox O2 Delivery O2 Flow Rate FiO2 02/23/23 09:12 68 149/103 (118) 97 Room Air Baseline Vital Signs Vital Signs Date Time Temp Pulse Resp B/P (MAP) Pulse Ox O2 Delivery O2 Flow Rate FiO2 02/23/23 09:12 68 149/103 (118) 97 Room Air Baseline EKG: Baseline EKG: NSR Summary: After explaining the procedure and details to the patient, he signed the consent and was brought to the stress nuclear laboratory. Patient exercised on standard Ej protocol, EKG, heart rate and blood pressure were monitored continuously, resting and stress doses of radio tracer were injected, imaging was acquired and reviewed in the short axis, horizontal long axis and vertical long axis views Patient was able to exercise for a total of 9 minutes on Ej protocol, METs 10.5 Maximum heart rate 156 Maximum blood pressure 213/94 Stress EKG, Minimal nondiagnostic changes Recovery EKG, Return to baseline TID: 1.2 SSS: 2 SDS: 1 EF: 56 Conclusion: Excellent exercise tolerance for a total of 9 minutes on standard Ej protoc ol, 10.5 METS achieving 93% of maximal expected heart rate Appropriate heart rate response to exercise with frequent APCs and PVCs during exercise persisted early in recovery Severe hypertensive response to exercise with peak blood pressure 213/94 return to baseline during recovery Diaphragmatic attenuation with typical male pattern, no significant ischemia or infarction noted on SPECT images Transient ischemic dilatation 1.2, probably on the upper limit of normal due to the severe hypertension Normal left ventricular size, ejection fraction 56% Copy Copies To 1: [facility] ALTAGRACIA RAE MD Feb 23, 2023 12:32
== END ==
LOC: CARD 08:00
PROVIDERS: ATTEND Internal Medicine Cardiovascular Disease
DX: I10 Essential (primary) hypertension (principal); I25.10 Atherosclerotic heart disease of native coronary artery without angina pectoris
CPT/HCPCS: 78452; 93017; A9502